=== PATIENT | female | born 1965 | race African-American/Black ===

== ENCOUNTER 2021-08-28 10:33 | Observation (INO) ==
[2021-08-28 10:46] VITALS: BMI 27.4
[2021-08-28] MEDS ORDERED: NS 1,000 ML IV 1,000 ML IV ONE (11:12)
--- NOTE | 2021-08-28 11:12 | DR.EXTPAIN ---
HPI Time seen Time Seen by Provider: 08/28/21 11:03 PCP Primary Care Physician: JORGE Complaint/Symptoms Chief Complaint Doctor Comments: 55 y/o female presents with a painful rash. Was recently diagnosed with covid, developed a rash soon after receiving Ab infusion. Rash worse of hands, feet. Has been itchy, now becoming more painful. Rash has worsened. + swelling, peeling of feet. +worse with palpitation, ambulation. Pt unable to bear weight easily. Nothing makes it better. Denies fever, chills, cough, dyspnea. Pt is a diabetic. Chief Complaint:: PT C/O ITCHING AND BLISTERS ALL OVER HER BODY. PATIENT STATES SHE IS JUST GETTING OVER COVID. SHE HAS WENT AND SEEN HER PCP, BUT PATIENT STATES HER FEET ARE HURTING SO BAD. COVID-19 Coronavirus risk:travel/contact w/high risk person: No Has patient experienced Coronavirus symptoms: No Nurses notes reviewed Nurses Notes Review: Yes Source History Provided: Patient Mode of arrival Mode of Arrival: Ambulatory Timing Onset of Chief Complaint: 08/20/21 PMH PMH Past Medical History: Yes Past Medical History: Diabetes and Hypertension Past Surgical History: Yes Surgical History: Hysterectomy Family History History of Family Medical Conditions: Yes Family Medical History: Diabetes Mellitus and Hypertension Social History Does patient currently use any type of tobacco product: Yes Have you used tobacco products in the last 12 months: Yes Type of Tobacco Use: Cigarettes Does any household member use tobacco: Yes Alcohol Use: None Do you use any recreational Drugs:: No Lives With: Alone Lives Where: Home Travel Risk Coronavirus risk:travel/contact w/high risk person: No Has patient experienced Coronavirus symptoms: No Infectious screening In the last 2 months have you had wt loss of >10#?: NO Have you had fever, night sweats or hemotysis?: No Have you traveled outside the country in the last 6 months?: No Isolation: Standard ROS Review of Systems Constitutional: No Symptoms Reported Eyes: No Symptoms Reported ENTM: No Symptoms Reported Respiratoy: No Symptoms Reported Cardiovascular: No Symptoms Reported Gastrointestinal/Abdominal: No Symptoms Reported Genitourinary: No Symptoms Reported Neurological: No Symptoms Reported Musculoskeletal: Foot Integumentary: Rash Hematologic/Lymphatic: No Symptoms Reported Psychiatric: No Symptoms Reported All Other Systems: Reviewed and Negative PE Vital Signs Vitals: Temperature 97.7 F Pulse Rate 96 Respiratory Rate 20 Blood Pressure [Left Arm] 116/60 Blood Pressure 156/80 O2 Sat by Pulse Oximetry 99 General Limitations: No Limitations General Appearance: Alert and In No Apparent Distress Head Head Exam: Normal Inspection Eyes Eye exam: Normal Appearance and PERRL ENT ENT Exam: Normal Exam Neck Neck Exam: Normal Inspection Chest Chest Inspection: Normal Inspection Respiratory Respiratory Exam: Normal Lung Sounds Bilat; negative Accessory Muscle Use and Respiratory Distress Respiratory Exam: Bilateral: Clear to Auscultation Cardiovascular Cardiovascular Exam: Regular Rate, Normal Rhythm and Normal Heart Sounds Extremities Extremities Exam: Other (+ bilateral swelling of feet, with tenderness. + fluctuance of bilateral heels, + dorsal erythema, R > L. + rash/peeling of hands. ) Neurological Neurological Exam: Alert, Oriented X3 and CN II-XII Intact; negative Motor Sensory Deficit Psychiatric Psychiatric Exam: Normal Affect Skin Skin Exam: Warm and Dry MDM Differential Diagnosis Differential Diagnosis: Other (cellulitis, allergic reaction, Covid rash) COURSE Treatment Treatment: 55 y/o female, recently had covid, developed an itchy rash of mostly her hands and feet. + worsening pain. + concerning for developing cellulitis of feet. Is a diabetic. W/u initiated. LAbs overall acceptable. Will treat with IV zosyn and solu-medrol. Will admit for further evaluation, treatment. Discussed with Dr Alarcon, accepts the admission. ROR Labs Reviewed Laboratory Results Reviewed?: Yes Result Diagrams: 08/28/21 11:31 08/28/21 11:31 Laboratory: WBC 8.1 X10^3/uL (3.6-10.0) 08/28/21 11:31 RBC 5.30 X10^6/uL (3.5-5.4) 08/28/21 11:31 Hgb 14.5 g/dL (12.0-16.0) 08/28/21 11:31 Hct 43.7 % (36.0-47.0) 08/28/21 11:31 MCV 82.5 fL (80.0-100.0) 08/28/21 11:31 MCH 27.5 pg (27.0-34.0) 08/28/21 11:31 MCHC 33.3 g/dL (33.0-35.0) 08/28/21 11:31 RDW 15.0 % (11.6-16.5) 08/28/21 11:31 Plt Count 372 X10^3/uL (150.0-450.0) 08/28/21 11:31 MPV 7.6 fL (7.4-11.0) 08/28/21 11:31 Neut % (Auto) 52.9 % (42.0-75.0) 08/28/21 11:31 Lymph % (Auto) 31.6 % (21.0-51.0) 08/28/21 11:31 [place] % (Auto) 5.6 % (0.0-13.0) 08/28/21 11:31 Eos % (Auto) 9.1 % (0.9-2.9) H 08/28/21 11:31 Baso % (Auto) 0.8 % (0.2-1.0) 08/28/21 11:31 Neut # (Auto) 4.3 x10^3/uL (2.2-4.8) 08/28/21 11:31 Lymph # (Auto) 2.5 X10^3/uL (1.3-2.9) 08/28/21 11:31 [place] # (Auto) 0.4 x10^3/uL (0.3-0.8) 08/28/21 11:31 Eos # (Auto) 0.7 x10^3/uL (0.0-0.2) H 08/28/21 11:31 Baso # (Auto) 0.1 X10^3/uL (0.0-0.1) 08/28/21 11:31 Absolute Nucleated RBC 0.0 /100WBC 08/28/21 11:31 Sodium 143 mmol/L (136-145) 08/28/21 11:31 Corrected Sodium TNP 08/28/21 11:31 Potassium 3.8 mmol/L (3.5-5.1) 08/28/21 11:31 Chloride 106 mmol/L (98-107) 08/28/21 11:31 Carbon Dioxide 25.9 mmol/L (21-32) 08/28/21 11:31 BUN 10 mg/dL (7-18) 08/28/21 11:31 Creatinine 0.54 mg/dL (0.55-1.02) L 08/28/21 11:31 Est GFR (MDRD) Af Amer > 60 (>60) 08/28/21 11:31 Est GFR (MDRD) Non-Af > 60 (>60) 08/28/21 11:31 Glucose 85 mg/dL (65-99) 08/28/21 11:31 Lactic Acid 1.1 mmol/L (0.4-2.0) 08/28/21 11:31 Calcium 8.6 mg/dL (8.5-10.1) 08/28/21 11:31 Corrected Calcium TNP 08/28/21 11:31 Total Bilirubin 0.30 mg/dL (0.2-1.0) 08/28/21 11:31 AST 22 Units/L (15-37) 08/28/21 11:31 ALT 29 Units/L (12-78) 08/28/21 11:31 Alkaline Phosphatase 113 Units/L (46-116) 08/28/21 11:31 C-Reactive Protein 0.80 mg/L (0-3.0) 08/28/21 11:31 Total Protein 7.7 g/dL (6.4-8.2) 08/28/21 11:31 Albumin 3.7 g/dL (3.4-5.0) 08/28/21 11:31 Globulin 4.0 g/dL (2.5-4.5) 08/28/21 11:31 Albumin/Globulin Ratio 0.9 Ratio (1.1-2.1) L 08/28/21 11:31 SARS CoV-2 RNA Rapid ROSIE Negative (NEGATIVE) 08/28/21 14:44 Other Results Comments: Labs acceptable. XRAY XRAY Interpreted by: Both X-ray Results: Xrays of feet without acute abnormalities. Opioid Opioid Risk Tool Age (Donald box if 16-45): No History of Preadolescent Sexual Abuse: No Total: 0 Total Score Risk Category: Low Risk Copyright: Jake ANDERSON predicting aberrant behaviors Diagnosis Discharge Problem: Cellulitis of both feet
[2021-08-28] MEDS ORDERED: NS 1,000 ML IV 1,000 ML ONE ×2 (11:18→16:33)
[2021-08-28] MEDS ORDERED: ZOFRAN INJ 4 MG VIAL IVP ONE (11:19)
[2021-08-28] MEDS ORDERED: DEMEROL INJ IVP ONE (11:19)
[2021-08-28] MEDS ORDERED: ZOFRAN INJ 4 MG VIAL ONE (11:27)
[2021-08-28] MEDS ORDERED: DEMEROL INJ ONE (11:27)
[2021-08-28 12:03] LABS: BASOPHILS # (AUTO) 0.1 X10^3/uL (0.0-0.1); BASOPHILS % (AUTO) 0.8 % (0.2-1.0); EOSINOPHILS # (AUTO) 0.7 x10^3/uL (0.0-0.2); EOSINOPHILS % (AUTO) 9.1 % (0.9-2.9); HEMATOCRIT 43.7 % (36.0-47.0); HEMOGLOBIN 14.5 g/dL (12.0-16.0); LYMPHOCYTES # (AUTO) 2.5 X10^3/uL (1.3-2.9); LYMPHOCYTES % (AUTO) 31.6 % (21.0-51.0); MEAN CORPUSCULAR HEMOGLOBIN 27.5 pg (27.0-34.0); MEAN CORPUSCULAR HGB CONC 33.3 g/dL (33.0-35.0); MEAN CORPUSCULAR VOLUME 82.5 fL (80.0-100.0); MEAN PLATELET VOLUME 7.6 fL (7.4-11.0); MONOCYTES # (AUTO) 0.4 x10^3/uL (0.3-0.8); MONOCYTES % (AUTO) 5.6 % (0.0-13.0); NEUTROPHILS # (AUTO) 4.3 x10^3/uL (2.2-4.8); NEUTROPHILS % (AUTO) 52.9 % (42.0-75.0); WHITE BLOOD COUNT 8.1 X10^3/uL (3.6-10.0)
[2021-08-28 12:12] LABS: ALANINE AMINOTRANSFERASE 29 Units/L (12-78); ALBUMIN 3.7 g/dL (3.4-5.0); ALKALINE PHOSPHATASE 113 Units/L (46-116); ASPARTATE AMINO TRANSFERASE 22 Units/L (15-37); BLOOD UREA NITROGEN 10 mg/dL (7-18); CALCIUM 8.6 mg/dL (8.5-10.1); CARBON DIOXIDE 25.9 mmol/L (21-32); CHLORIDE 106 mmol/L (98-107); CREATININE 0.54 mg/dL (0.55-1.02); SODIUM 143 mmol/L (136-145); TOTAL PROTEIN 7.7 g/dL (6.4-8.2); eGFR NON BLACK RACES > 60 (>60)
[2021-08-28 12:15] LABS: LACTIC ACID 1.1 mmol/L (0.4-2.0)
--- NOTE | 2021-08-28 14:03 | RAD ---
HISTORYptcovid positive, rash to feet and handsSTUDYFOOT, LEFT three-viewCOMPARISONRight foot same dayFINDINGSNo acute cortical disruption or dislocation can be identified. No significant soft tissue swelling or injury can be seen. Calcaneal enthesophytes.IMPRESSIONNo acute fracture or dislocation.Electronically signed by: JESE SANCHEZ (Aug 28, 2021 14:01:35)
--- NOTE | 2021-08-28 14:07 | RAD ---
HISTORYpt covid positive, rash to hands and feetSTUDYFOOT, RIGHT four viewsCOMPARISONNoneFINDINGSAlignment is maintained. No significant soft tissue swelling is present. No fracture or dislocation. Very mild degenerative changes in the midfoot. No abnormal calcification. Enthesophytes on the calcaneus. No foreign body. No emphysema in the soft tissues.IMPRESSION1. No acute finding2. Mild degenerative changesElectronically signed by: Dustin Mosley (Aug 28, 2021 14:06:14)
[2021-08-28] MEDS ORDERED: NS 100 ML IV 0 ML ONE (16:34)
[2021-08-28] MEDS ORDERED: ZOSYN VIAL 3.375 GRAMS IV ONE (16:34)
[2021-08-28] MEDS: NS 1,000 ML IV 1,000 ML IV SCH (16:36)
[2021-08-28] MEDS: ZOSYN VIAL 3.375 GRAMS 3.375 G in NS 100 ML IV 100 ML IV SCH ×2 (16:36→21:52)
[2021-08-28] MEDS: SOLU-Medrol 40 MG VIAL IVP SCH (21:52)
[2021-08-28] MEDS: ULTRAM PO PRN (23:20)
[2021-08-29] MEDS: SOLU-Medrol 40 MG VIAL IVP SCH ×3 (05:57→21:30)
[2021-08-29] MEDS: ZOSYN VIAL 3.375 GRAMS 3.375 G in NS 100 ML IV 100 ML IV SCH ×3 (05:57→21:31)
[2021-08-29] MEDS: ULTRAM PO PRN (06:10)
[2021-08-29 06:37] LABS: BASOPHILS # (AUTO) 0.1 X10^3/uL (0.0-0.1); EOSINOPHILS % (AUTO) 0.1 % (0.9-2.9); HEMATOCRIT 42.1 % (36.0-47.0); LYMPHOCYTES # (AUTO) 1.7 X10^3/uL (1.3-2.9); LYMPHOCYTES % (AUTO) 27.1 % (21.0-51.0); MEAN CORPUSCULAR HEMOGLOBIN 27.3 pg (27.0-34.0); MEAN CORPUSCULAR HGB CONC 33.2 g/dL (33.0-35.0); MEAN PLATELET VOLUME 7.5 fL (7.4-11.0); MONOCYTES # (AUTO) 0.1 x10^3/uL (0.3-0.8); MONOCYTES % (AUTO) 1.5 % (0.0-13.0); NEUTROPHILS # (AUTO) 4.3 x10^3/uL (2.2-4.8); NEUTROPHILS % (AUTO) 70.3 % (42.0-75.0); RED BLOOD COUNT 5.13 X10^6/uL (3.5-5.4); WHITE BLOOD COUNT 6.1 X10^3/uL (3.6-10.0)
[2021-08-29 07:00] LABS: ALANINE AMINOTRANSFERASE 29 Units/L (12-78); ALBUMIN 3.2 g/dL (3.4-5.0); ALKALINE PHOSPHATASE 102 Units/L (46-116); ASPARTATE AMINO TRANSFERASE 18 Units/L (15-37); BLOOD UREA NITROGEN 9 mg/dL (7-18); CARBON DIOXIDE 23.6 mmol/L (21-32); CHLORIDE 106 mmol/L (98-107); COR CA(FOR HYPOALB) 8.6 mg/dL (8.5-10.1); COR NA(FOR HYPERGLY) 143 mmol/L (136-145); SODIUM 142 mmol/L (136-145); TOTAL PROTEIN 6.9 g/dL (6.4-8.2); eGFR NON BLACK RACES > 60 (>60)
[2021-08-29] MEDS: NS 1,000 ML IV 1,000 ML IV SCH (07:43)
--- NOTE | 2021-08-29 10:54 | DR.H&P ---
H&P History & Physical for Day of: H&P Date: 08/29/21 Chief Complaint Chief Complaint: Bilateral foot pain Rash Allergies Allergies Allergy/AdvReac Type Severity Reaction Status Date / Time codeine AdvReac Verified 07/27/21 09:33 History of Present Illness History of Present Illness: Pt is a 55 year old female past medical history of Hypertension, DMT2, presenting with worsening pain in feet and a spreading skin rash that is found throughout the body. She reports that symptoms initially started a few weeks prior, 5 days after she received antibody infusion when she was found to be COVID-19 positive. Labs/imagin.1, Hgb 14, Plt 392, Na 142, K 3.9, Creatinine 0.60, Glucose 155, XR bilateral feet no acute abnormality noted, Blood culture pending. Pt on exam has edema and some erythema in her feet. She also has dermatitis appearing rash that is noted in all extremities and abdomen. She will be admitted for cellulitis. Started on antibiotics: IV Zosyn Q8h, and for skin hypersensitivity reaction will start on IV Solumedrol 40mg Q8h. Will order ESR and CRP. Pharmacy to determine any drug interactions that may be cause of rash. Can use calamine lotion for skin irritation. Continue to closely monitor and follow up labs/imaging. Past Medical History Past Medical History: Diabetes and Hypertension Past Surgical History Surgical History: Hysterectomy Family History Family Medical History: Diabetes Mellitus and Hypertension Social History Does patient currently use any type of tobacco product: Yes Have you used tobacco products in the last 12 months: Yes Type of Tobacco Use: Cigarettes Does any household member use tobacco: Yes Alcohol Use: None Drug Use: None Medications Home Medications: codeine Adverse Reaction (Verified 07/27/21 09:33) CONTINUE taking the following medications aspirin 81 mg PO DAILY 08/28/21 [History] atorvastatin 20 mg PO DAILY 08/28/21 [History] empagliflozin [Jardiance] 25 mg PO DAILY 08/28/21 [History] gabapentin 600 mg PO HS 08/28/21 [History] hydroxyzine HCl 10 - 50 mg PO Q6H PRN 08/28/21 [History] lisinopril 20 mg PO DAILY 08/28/21 [History] metformin 1,000 mg PO DAILY 08/28/21 [History] mometasone 1 applic TOPICAL BID 08/28/21 [History] Labs Result Diagrams: 08/29/21 06:13 08/29/21 06:13 Labs: Laboratory WBC 6.1 X10^3/uL (3.6-10.0) 08/29/21 06:13 RBC 5.13 X10^6/uL (3.5-5.4) 08/29/21 06:13 Hgb 14.0 g/dL (12.0-16.0) 08/29/21 06:13 Hct 42.1 % (36.0-47.0) 08/29/21 06:13 MCV 82.0 fL (80.0-100.0) 08/29/21 06:13 MCH 27.3 pg (27.0-34.0) 08/29/21 06:13 MCHC 33.2 g/dL (33.0-35.0) 08/29/21 06:13 RDW 15.0 % (11.6-16.5) 08/29/21 06:13 Plt Count 392 X10^3/uL (150.0-450.0) 08/29/21 06:13 MPV 7.5 fL (7.4-11.0) 08/29/21 06:13 Neut % (Auto) 70.3 % (42.0-75.0) 08/29/21 06:13 Lymph % (Auto) 27.1 % (21.0-51.0) 08/29/21 06:13 Price % (Auto) 1.5 % (0.0-13.0) 08/29/21 06:13 Eos % (Auto) 0.1 % (0.9-2.9) L 08/29/21 06:13 Baso % (Auto) 1.0 % (0.2-1.0) 08/29/21 06:13 Neut # (Auto) 4.3 x10^3/uL (2.2-4.8) 08/29/21 06:13 Lymph # (Auto) 1.7 X10^3/uL (1.3-2.9) 08/29/21 06:13 Price # (Auto) 0.1 x10^3/uL (0.3-0.8) L 08/29/21 06:13 Eos # (Auto) 0.0 x10^3/uL (0.0-0.2) 08/29/21 06:13 Baso # (Auto) 0.1 X10^3/uL (0.0-0.1) 08/29/21 06:13 Absolute Nucleated RBC 0.0 /100WBC 08/29/21 06:13 Sodium 142 mmol/L (136-145) 08/29/21 06:13 Corrected Sodium 143 mmol/L (136-145) 08/29/21 06:13 Potassium 3.9 mmol/L (3.5-5.1) 08/29/21 06:13 Chloride 106 mmol/L (98-107) 08/29/21 06:13 Carbon Dioxide 23.6 mmol/L (21-32) 08/29/21 06:13 BUN 9 mg/dL (7-18) 08/29/21 06:13 Creatinine 0.60 mg/dL (0.55-1.02) 08/29/21 06:13 Est GFR (MDRD) Af Amer > 60 (>60) 08/29/21 06:13 Est GFR (MDRD) Non-Af > 60 (>60) 08/29/21 06:13 Glucose 155 mg/dL (65-99) H 08/29/21 06:13 POC Glucose (mg/dL) 175 mg/dL (65-99) H 08/29/21 05:46 Lactic Acid 1.1 mmol/L (0.4-2.0) 08/28/21 11:31 Calcium 8.0 mg/dL (8.5-10.1) L 08/29/21 06:13 Corrected Calcium 8.6 mg/dL (8.5-10.1) 08/29/21 06:13 Total Bilirubin 0.30 mg/dL (0.2-1.0) 08/29/21 06:13 AST 18 Units/L (15-37) 08/29/21 06:13 ALT 29 Units/L (12-78) 08/29/21 06:13 Alkaline Phosphatase 102 Units/L (46-116) 08/29/21 06:13 C-Reactive Protein 0.80 mg/L (0-3.0) 08/28/21 11:31 Total Protein 6.9 g/dL (6.4-8.2) 08/29/21 06:13 Albumin 3.2 g/dL (3.4-5.0) L 08/29/21 06:13 Globulin 3.7 g/dL (2.5-4.5) 08/29/21 06:13 Albumin/Globulin Ratio 0.9 Ratio (1.1-2.1) L 08/29/21 06:13 SARS CoV-2 RNA Rapid ROSIE Negative (NEGATIVE) 08/28/21 14:44 Review of Systems Constitutional: No Symptoms Reported Eyes: No Symptoms Reported ENT: No Symptoms Reported Respiratory: No Symptoms Reported Cardiovascular: No Symptoms Reported Gastrointestinal: No Symptoms Reported Genitourinary: No Symptoms Reported Musculoskeletal: Foot Pain (B/L) Skin: Rash Neurological: No Symptoms Reported Physical Exam Vital Signs: Temperature 98.3 F Pulse Rate [Right Brachial] 81 Pulse Rate 96 Respiratory Rate 20 Blood Pressure [Left Arm] 134/72 Blood Pressure 156/80 O2 Sat by Pulse Oximetry 100 Oriented: Normal Eyes: Normal Ear: Normal Nose: Normal Throat: Normal Respiratory: Clear Throughout Cardiovascular: Normal : Normal Auscultation: Bowel Sounds: Normal Palpation: Normal Tenderness: Normal Skin: Rash (diffuse on body, no involvement of mucous membranes ) Musculoskeletal: Foot (erythema, edema b/l) Psychiatric: Normal Mood Description: Calm and Appropriate Affect: Normal Speech Pattern: Clear and Appropriate Assessment/Plan (1) Cellulitis of both feet: Status: Acute Plan: IV Zosyn (2) Dermal hypersensitivity reaction: Status: Acute Review H&P Reviewed: Yes Patient was examined?: Yes
[2021-08-29] MEDS: DEMEROL INJ IVP PRN ×2 (11:25→21:16)
[2021-08-29] MEDS ORDERED: ATARAX TAB 25 MG PO PRN (12:12)
[2021-08-29] MEDS: NYSTATIN POWDER TOP SCH ×2 (15:00→21:10)
[2021-08-29] MEDS: PATIENT'S HOME MEDICATION EXT SCH ×2 (17:24→21:30)
[2021-08-29] MEDS: CALADRYL TOP SCH ×2 (17:25→21:10)
[2021-08-29] MEDS: LEVEMIR SC SCH (20:30)
[2021-08-29] MEDS: SNACK - Diabetic Appropriate PO SCH (21:10)
[2021-08-29] MEDS: NovoLIN R (or HumuLIN R) SUBCUT PRN (21:15)
[2021-08-30] MEDS: NS 1,000 ML IV 1,000 ML IV SCH ×3 (01:15→21:38)
[2021-08-30] MEDS: ZOSYN VIAL 3.375 GRAMS 3.375 G in NS 100 ML IV 100 ML IV SCH ×3 (05:34→22:11)
[2021-08-30] MEDS: SOLU-Medrol 40 MG VIAL IVP SCH (05:34)
[2021-08-30] MEDS: NovoLIN R (or HumuLIN R) SUBCUT PRN (05:57)
[2021-08-30] MEDS: PATIENT'S HOME MEDICATION EXT SCH ×3 (06:46→21:39)
[2021-08-30 06:51] LABS: BASOPHILS % (AUTO) 0.1 % (0.2-1.0); HEMATOCRIT 42.1 % (36.0-47.0); HEMOGLOBIN 13.7 g/dL (12.0-16.0); LYMPHOCYTES # (AUTO) 2.7 X10^3/uL (1.3-2.9); LYMPHOCYTES % (AUTO) 16.9 % (21.0-51.0); MEAN CORPUSCULAR HEMOGLOBIN 26.7 pg (27.0-34.0); MEAN CORPUSCULAR HGB CONC 32.4 g/dL (33.0-35.0); MEAN CORPUSCULAR VOLUME 82.3 fL (80.0-100.0); MEAN PLATELET VOLUME 7.6 fL (7.4-11.0); MONOCYTES # (AUTO) 0.6 x10^3/uL (0.3-0.8); MONOCYTES % (AUTO) 3.9 % (0.0-13.0); NEUTROPHILS # (AUTO) 12.5 x10^3/uL (2.2-4.8); NEUTROPHILS % (AUTO) 79.1 % (42.0-75.0); RED BLOOD COUNT 5.12 X10^6/uL (3.5-5.4); RED CELL DISTRIBUTION WIDTH 14.9 % (11.6-16.5); WHITE BLOOD COUNT 15.8 X10^3/uL (3.6-10.0)
[2021-08-30 07:09] LABS: ERYTHROCYTE SEDIMENTATION RATE 21 MM/HOUR (0-20)
[2021-08-30 07:20] LABS: ALANINE AMINOTRANSFERASE 29 Units/L (12-78); ALBUMIN 3.5 g/dL (3.4-5.0); ALKALINE PHOSPHATASE 95 Units/L (46-116); ASPARTATE AMINO TRANSFERASE 17 Units/L (15-37); BLOOD UREA NITROGEN 12 mg/dL (7-18); CALCIUM 8.3 mg/dL (8.5-10.1); CARBON DIOXIDE 25.5 mmol/L (21-32); CHLORIDE 105 mmol/L (98-107); COR NA(FOR HYPERGLY) 142 mmol/L (136-145); CREATININE 0.62 mg/dL (0.55-1.02); SODIUM 140 mmol/L (136-145); TOTAL PROTEIN 7.3 g/dL (6.4-8.2); eGFR NON BLACK RACES > 60 (>60)
[2021-08-30] MEDS ORDERED: ZESTRIL TAB 20 MG ONE (08:42)
[2021-08-30] MEDS ORDERED: LIPITOR TAB 20 MG PO SCH (09:00)
[2021-08-30] MEDS: CALADRYL TOP SCH ×4 (09:29→21:38)
[2021-08-30] MEDS: NORVASC TAB 10 MG PO SCH (09:29)
[2021-08-30] MEDS: GLUCOPHAGE XR 24-HR PO SCH (09:29)
[2021-08-30] MEDS: ZESTRIL TAB 20 MG PO SCH (09:30)
[2021-08-30] MEDS: NYSTATIN POWDER TOP SCH ×2 (09:42→21:38)
[2021-08-30] MEDS: LAMISIL CREAM TOP SCH (12:00)
[2021-08-30] MEDS: DIFLUCAN 200 MG IV PREMIX* 200 MG/100 ML BAG IV SCH (12:30)
--- NOTE | 2021-08-30 16:23 | PCM.PROG ---
Progress Note Progress Note for Day of Date of Exam: 08/30/21 Subjective Subjective: Pt is a 55 year old female past medical history of Hypertension, DMT2, admitted for bilateral lower extremity cellulitis, dermatitis, and tinea. This morning she reports improvement in her feet swelling and erythema. Rashes on other areas of body have remained the same. Labs/imagin.8, Hgb 13.7, Plt 412, Na 140, K 4.2, Creatinine 0.62, Glucose 192, Blood culture NGTD. Pt on exam has minimal edema and resolving erythema in her feet. She also has dermatitis appearing rash that is noted in all extremities and abdomen. Will continue on antibiotics: IV Zosyn Q8h. ESR and CRP not significant levels, will discontinue IV Solumedrol 40mg Q8h. Start on Lamisil cream and IV Diflucan. Can use calamine lotion for skin irritation. Will need to arrange referral and appointment to Dermatology outpatient. Continue to closely monitor and follow up labs/imaging. Past Medical Family Social History Past Med/Fam/Surg Hx: No changes since H&P Allergies: Allergies codeine Adverse Reaction (Verified 07/27/21 09:33) Review of Systems ROS: No change since H&P Vital Signs and I&O's Vital Signs: Temperature 98.4 F Pulse Rate [Right Brachial] 81 Pulse Rate 96 Respiratory Rate 20 Blood Pressure [Right Arm] 143/80 Blood Pressure [Left Arm] 157/76 Blood Pressure 156/80 O2 Sat by Pulse Oximetry 100 Intake and Output: Intake & Output 08/27/21 08/28/21 08/29/21 08/30/21 23:59 23:59 23:59 23:59 Intake Total 1037 / 1037 1560 / 1560 480 / 480 Balance 1037 / 1037 1560 / 1560 480 / 480 Physical Exam Oriented: Normal Eyes: Normal Ear: Normal Nose: Normal Throat: Normal Respiratory: Normal Cardiovascular: Normal : Normal Auscultation: Bowel Sounds: Normal Tenderness: Normal Skin: Rash (diffuse on body, no involvement of mucous membranes ) Musculoskeletal: Foot (erythema, edema b/l) Psychiatric: Normal Mood Description: Calm and Appropriate Affect: Normal Speech Pattern: Clear and Appropriate Laboratory and Diagnostics Result Diagrams: 08/30/21 06:00 08/30/21 06:00 Labs: 08/28/21 11:34 Blood Blood Culture - Preliminary 08/28/21 11:31 Blood Blood Culture - Preliminary Laboratory WBC 15.8 X10^3/uL (3.6-10.0) H D 08/30/21 06:00 RBC 5.12 X10^6/uL (3.5-5.4) 08/30/21 06:00 Hgb 13.7 g/dL (12.0-16.0) 08/30/21 06:00 Hct 42.1 % (36.0-47.0) 08/30/21 06:00 MCV 82.3 fL (80.0-100.0) 08/30/21 06:00 MCH 26.7 pg (27.0-34.0) L 08/30/21 06:00 MCHC 32.4 g/dL (33.0-35.0) L 08/30/21 06:00 RDW 14.9 % (11.6-16.5) 08/30/21 06:00 Plt Count 412 X10^3/uL (150.0-450.0) 08/30/21 06:00 MPV 7.6 fL (7.4-11.0) 08/30/21 06:00 Neut % (Auto) 79.1 % (42.0-75.0) H 08/30/21 06:00 Lymph % (Auto) 16.9 % (21.0-51.0) L 08/30/21 06:00 [place] % (Auto) 3.9 % (0.0-13.0) 08/30/21 06:00 Eos % (Auto) 0.0 % (0.9-2.9) L 08/30/21 06:00 Baso % (Auto) 0.1 % (0.2-1.0) L 08/30/21 06:00 Neut # (Auto) 12.5 x10^3/uL (2.2-4.8) H 08/30/21 06:00 Lymph # (Auto) 2.7 X10^3/uL (1.3-2.9) 08/30/21 06:00 [place] # (Auto) 0.6 x10^3/uL (0.3-0.8) 08/30/21 06:00 Eos # (Auto) 0.0 x10^3/uL (0.0-0.2) 08/30/21 06:00 Baso # (Auto) 0.0 X10^3/uL (0.0-0.1) 08/30/21 06:00 Absolute Nucleated RBC 0.3 /100WBC 08/30/21 06:00 ESR 21 MM/HOUR (0-20) H 08/30/21 06:00 Sodium 140 mmol/L (136-145) 08/30/21 06:00 Corrected Sodium 142 mmol/L (136-145) 08/30/21 06:00 Potassium 4.2 mmol/L (3.5-5.1) 08/30/21 06:00 Chloride 105 mmol/L (98-107) 08/30/21 06:00 Carbon Dioxide 25.5 mmol/L (21-32) 08/30/21 06:00 BUN 12 mg/dL (7-18) 08/30/21 06:00 Creatinine 0.62 mg/dL (0.55-1.02) 08/30/21 06:00 Est GFR (MDRD) Af Amer > 60 (>60) 08/30/21 06:00 Est GFR (MDRD) Non-Af > 60 (>60) 08/30/21 06:00 Glucose 192 mg/dL (65-99) H 08/30/21 06:00 POC Glucose (mg/dL) 120 mg/dL (65-99) H 08/30/21 12:27 Lactic Acid 1.1 mmol/L (0.4-2.0) 08/28/21 11:31 Calcium 8.3 mg/dL (8.5-10.1) L 08/30/21 06:00 Corrected Calcium TNP 08/30/21 06:00 Total Bilirubin 0.30 mg/dL (0.2-1.0) 08/30/21 06:00 AST 17 Units/L (15-37) 08/30/21 06:00 ALT 29 Units/L (12-78) 08/30/21 06:00 Alkaline Phosphatase 95 Units/L (46-116) 08/30/21 06:00 C-Reactive Protein < 0.50 mg/L (0-3.0) 08/30/21 06:00 Total Protein 7.3 g/dL (6.4-8.2) 08/30/21 06:00 Albumin 3.5 g/dL (3.4-5.0) 08/30/21 06:00 Globulin 3.8 g/dL (2.5-4.5) 08/30/21 06:00 Albumin/Globulin Ratio 0.9 Ratio (1.1-2.1) L 08/30/21 06:00 SARS CoV-2 RNA Rapid ROSIE Negative (NEGATIVE) 08/28/21 14:44 Plan (1) Cellulitis of both feet: Status: Acute Plan: IV Zosyn (2) Dermal hypersensitivity reaction: Status: Acute (3) Tinea pedis: Status: Acute
[2021-08-30] MEDS: SNACK - Diabetic Appropriate PO SCH (21:38)
[2021-08-30] MEDS: LEVEMIR SC SCH (21:39)
[2021-08-30] MEDS: LIPITOR TAB 20 MG PO SCH (21:39)
[2021-08-30] MEDS: DEMEROL INJ IVP PRN (21:58)
[2021-08-31] MEDS: ZOSYN VIAL 3.375 GRAMS 3.375 G in NS 100 ML IV 100 ML IV SCH ×3 (05:45→21:37)
[2021-08-31] MEDS: NS 1,000 ML IV 1,000 ML IV SCH ×3 (05:45→21:36)
[2021-08-31] MEDS: PATIENT'S HOME MEDICATION EXT SCH ×3 (05:46→21:37)
[2021-08-31] MEDS: DEMEROL INJ IVP PRN (05:47)
[2021-08-31 06:16] LABS: BASOPHILS # (AUTO) 0.1 X10^3/uL (0.0-0.1); EOSINOPHILS # (AUTO) 0.1 x10^3/uL (0.0-0.2); EOSINOPHILS % (AUTO) 0.7 % (0.9-2.9); HEMATOCRIT 40.4 % (36.0-47.0); HEMOGLOBIN 13.4 g/dL (12.0-16.0); LYMPHOCYTES # (AUTO) 4.6 X10^3/uL (1.3-2.9); LYMPHOCYTES % (AUTO) 40.1 % (21.0-51.0); MEAN CORPUSCULAR HEMOGLOBIN 27.2 pg (27.0-34.0); MEAN CORPUSCULAR HGB CONC 33.2 g/dL (33.0-35.0); MEAN CORPUSCULAR VOLUME 81.9 fL (80.0-100.0); MEAN PLATELET VOLUME 7.6 fL (7.4-11.0); MONOCYTES # (AUTO) 0.8 x10^3/uL (0.3-0.8); NEUTROPHILS # (AUTO) 5.8 x10^3/uL (2.2-4.8); NEUTROPHILS % (AUTO) 51.2 % (42.0-75.0); RED BLOOD COUNT 4.93 X10^6/uL (3.5-5.4); RED CELL DISTRIBUTION WIDTH 14.9 % (11.6-16.5); WHITE BLOOD COUNT 11.4 X10^3/uL (3.6-10.0)
[2021-08-31] MEDS ORDERED: ZESTRIL TAB 20 MG ONE (08:29)
[2021-08-31] MEDS: ZESTRIL TAB 20 MG PO SCH (09:48)
[2021-08-31] MEDS: CALADRYL TOP SCH ×4 (09:48→21:36)
[2021-08-31] MEDS: NYSTATIN POWDER TOP SCH ×2 (09:48→21:36)
[2021-08-31] MEDS: GLUCOPHAGE XR 24-HR PO SCH (09:48)
[2021-08-31] MEDS: NORVASC TAB 10 MG PO SCH (09:48)
[2021-08-31] MEDS: DIFLUCAN 200 MG IV PREMIX* 200 MG/100 ML BAG IV SCH (09:49)
[2021-08-31] MEDS: LAMISIL CREAM TOP SCH ×2 (11:26→15:00)
--- NOTE | 2021-08-31 14:52 | PCM.PROG ---
Progress Note Progress Note for Day of Date of Exam: 08/31/21 Subjective Subjective: Pt is a 55 year old female past medical history of Hypertension, DMT2, admitted for bilateral lower extremity cellulitis, dermatitis, and tinea. This morning patient has had some improvement in her symptoms. She continues to have dry, flakey, rash on other areas of body. Labs/imagin.4, Hgb 13.4, Plt 387, Na 140, K 4.2, Creatinine 0.62, Glucose 192, Blood culture NGTD. Pt on exam has minimal edema and resolving erythema in her feet. She also has dermatitis appearing rash that is noted in all extremities and abdomen. Will continue on antibiotics: IV Zosyn Q8h, Lamisil cream, and IV Diflucan. Calamine lotion ordered for skin irritation. Dermatology appointment outpatient is being a rranged by case management. Continue to closely monitor and follow up labs. Past Medical Family Social History Past Med/Fam/Surg Hx: No changes since H&P Allergies: Allergies codeine Adverse Reaction (Verified 07/27/21 09:33) Review of Systems ROS: No change since H&P Vital Signs and I&O's Vital Signs: Temperature 98.7 F Pulse Rate [Right Brachial] 65 Pulse Rate 96 Respiratory Rate 16 Blood Pressure [Right Arm] 146/74 Blood Pressure [Left Arm] 157/76 Blood Pressure 156/80 O2 Sat by Pulse Oximetry 100 Intake and Output: Intake & Output 08/28/21 08/29/21 08/30/21 08/31/21 23:59 23:59 23:59 23:59 Intake Total 1037 / 1037 1560 / 1560 3443 / 3443 356 / 356 Balance 1037 / 1037 1560 / 1560 3443 / 3443 356 / 356 Physical Exam Oriented: Normal Eyes: Normal Ear: Normal Nose: Normal Throat: Normal Respiratory: Normal Cardiovascular: Normal : Normal Auscultation: Bowel Sounds: Normal Tenderness: Normal Skin: Rash (diffuse on body, no involvement of mucous membranes ) Musculoskeletal: Foot (erythema, edema b/l) Psychiatric: Normal Mood Description: Calm and Appropriate Affect: Normal Speech Pattern: Clear and Appropriate Laboratory and Diagnostics Result Diagrams: 08/31/21 05:08 08/30/21 06:00 Labs: 08/28/21 11:34 Blood Blood Culture - Preliminary 08/28/21 11:31 Blood Blood Culture - Preliminary Laboratory WBC 11.4 X10^3/uL (3.6-10.0) H 08/31/21 05:08 RBC 4.93 X10^6/uL (3.5-5.4) 08/31/21 05:08 Hgb 13.4 g/dL (12.0-16.0) 08/31/21 05:08 Hct 40.4 % (36.0-47.0) 08/31/21 05:08 MCV 81.9 fL (80.0-100.0) 08/31/21 05:08 MCH 27.2 pg (27.0-34.0) 08/31/21 05:08 MCHC 33.2 g/dL (33.0-35.0) 08/31/21 05:08 RDW 14.9 % (11.6-16.5) 08/31/21 05:08 Plt Count 387 X10^3/uL (150.0-450.0) 08/31/21 05:08 MPV 7.6 fL (7.4-11.0) 08/31/21 05:08 Neut % (Auto) 51.2 % (42.0-75.0) 08/31/21 05:08 Lymph % (Auto) 40.1 % (21.0-51.0) 08/31/21 05:08 [place] % (Auto) 7.0 % (0.0-13.0) 08/31/21 05:08 Eos % (Auto) 0.7 % (0.9-2.9) L 08/31/21 05:08 Baso % (Auto) 1.0 % (0.2-1.0) 08/31/21 05:08 Neut # (Auto) 5.8 x10^3/uL (2.2-4.8) H 08/31/21 05:08 Lymph # (Auto) 4.6 X10^3/uL (1.3-2.9) H 08/31/21 05:08 [place] # (Auto) 0.8 x10^3/uL (0.3-0.8) 08/31/21 05:08 Eos # (Auto) 0.1 x10^3/uL (0.0-0.2) 08/31/21 05:08 Baso # (Auto) 0.1 X10^3/uL (0.0-0.1) 08/31/21 05:08 Absolute Nucleated RBC 0.1 /100WBC 08/31/21 05:08 ESR 21 MM/HOUR (0-20) H 08/30/21 06:00 Sodium 140 mmol/L (136-145) 08/30/21 06:00 Corrected Sodium 142 mmol/L (136-145) 08/30/21 06:00 Potassium 4.2 mmol/L (3.5-5.1) 08/30/21 06:00 Chloride 105 mmol/L (98-107) 08/30/21 06:00 Carbon Dioxide 25.5 mmol/L (21-32) 08/30/21 06:00 BUN 12 mg/dL (7-18) 08/30/21 06:00 Creatinine 0.62 mg/dL (0.55-1.02) 08/30/21 06:00 Est GFR (MDRD) Af Amer > 60 (>60) 08/30/21 06:00 Est GFR (MDRD) Non-Af > 60 (>60) 08/30/21 06:00 Glucose 192 mg/dL (65-99) H 08/30/21 06:00 POC Glucose (mg/dL) 113 mg/dL (65-99) H 08/31/21 11:15 Lactic Acid 1.1 mmol/L (0.4-2.0) 08/28/21 11:31 Calcium 8.3 mg/dL (8.5-10.1) L 08/30/21 06:00 Corrected Calcium TNP 08/30/21 06:00 Total Bilirubin 0.30 mg/dL (0.2-1.0) 08/30/21 06:00 AST 17 Units/L (15-37) 08/30/21 06:00 ALT 29 Units/L (12-78) 08/30/21 06:00 Alkaline Phosphatase 95 Units/L (46-116) 08/30/21 06:00 C-Reactive Protein < 0.50 mg/L (0-3.0) 08/31/21 05:08 Total Protein 7.3 g/dL (6.4-8.2) 08/30/21 06:00 Albumin 3.5 g/dL (3.4-5.0) 08/30/21 06:00 Globulin 3.8 g/dL (2.5-4.5) 08/30/21 06:00 Albumin/Globulin Ratio 0.9 Ratio (1.1-2.1) L 08/30/21 06:00 SARS CoV-2 RNA Rapid ROSIE Negative (NEGATIVE) 08/28/21 14:44 Plan (1) Cellulitis of both feet: Status: Acute Plan: IV Zosyn (2) Dermal hypersensitivity reaction: Status: Acute (3) Tinea pedis: Status: Acute
[2021-08-31] MEDS: SNACK - Diabetic Appropriate PO SCH (20:35)
[2021-08-31] MEDS: LIPITOR TAB 20 MG PO SCH (21:36)
[2021-08-31] MEDS: LEVEMIR SC SCH (21:37)
[2021-09-01] MEDS: DEMEROL INJ IVP PRN (04:25)
[2021-09-01] MEDS: PATIENT'S HOME MEDICATION EXT SCH (05:31)
[2021-09-01] MEDS: ZOSYN VIAL 3.375 GRAMS 3.375 G in NS 100 ML IV 100 ML IV SCH (05:32)
[2021-09-01 06:10] LABS: BASOPHILS # (AUTO) 0.1 X10^3/uL (0.0-0.1); BASOPHILS % (AUTO) 0.7 % (0.2-1.0); EOSINOPHILS # (AUTO) 0.3 x10^3/uL (0.0-0.2); EOSINOPHILS % (AUTO) 3.6 % (0.9-2.9); HEMATOCRIT 40.5 % (36.0-47.0); HEMOGLOBIN 13.5 g/dL (12.0-16.0); LYMPHOCYTES # (AUTO) 2.9 X10^3/uL (1.3-2.9); LYMPHOCYTES % (AUTO) 36.6 % (21.0-51.0); MEAN CORPUSCULAR HEMOGLOBIN 27.3 pg (27.0-34.0); MEAN CORPUSCULAR HGB CONC 33.3 g/dL (33.0-35.0); MEAN CORPUSCULAR VOLUME 82.1 fL (80.0-100.0); MEAN PLATELET VOLUME 7.6 fL (7.4-11.0); MONOCYTES # (AUTO) 0.7 x10^3/uL (0.3-0.8); MONOCYTES % (AUTO) 8.5 % (0.0-13.0); NEUTROPHILS # (AUTO) 4.1 x10^3/uL (2.2-4.8); NEUTROPHILS % (AUTO) 50.6 % (42.0-75.0); RED BLOOD COUNT 4.93 X10^6/uL (3.5-5.4); RED CELL DISTRIBUTION WIDTH 14.8 % (11.6-16.5)
[2021-09-01] MEDS ORDERED: ZESTRIL TAB 20 MG ONE (07:36)
[2021-09-01 08:09] VITALS: BP 129/67
[2021-09-01] MEDS: ZESTRIL TAB 20 MG PO SCH (08:15)
[2021-09-01] MEDS: DIFLUCAN 200 MG IV PREMIX* 200 MG/100 ML BAG IV SCH (08:15)
[2021-09-01] MEDS: CALADRYL TOP SCH ×2 (08:15→13:00)
[2021-09-01] MEDS: NYSTATIN POWDER TOP SCH (08:16)
[2021-09-01] MEDS: NORVASC TAB 10 MG PO SCH (08:16)
[2021-09-01] MEDS: GLUCOPHAGE XR 24-HR PO SCH (08:16)
[2021-09-01 08:27] LABS: ALANINE AMINOTRANSFERASE 30 Units/L (12-78); ALBUMIN 3.2 g/dL (3.4-5.0); ALKALINE PHOSPHATASE 73 Units/L (46-116); ASPARTATE AMINO TRANSFERASE 14 Units/L (15-37); BLOOD UREA NITROGEN 12 mg/dL (7-18); CALCIUM 7.8 mg/dL (8.5-10.1); CARBON DIOXIDE 24.7 mmol/L (21-32); CHLORIDE 105 mmol/L (98-107); COR CA(FOR HYPOALB) 8.4 mg/dL (8.5-10.1); COR NA(FOR HYPERGLY) 141 mmol/L (136-145); CREATININE 0.65 mg/dL (0.55-1.02); SODIUM 140 mmol/L (136-145); TOTAL PROTEIN 6.4 g/dL (6.4-8.2); eGFR NON BLACK RACES > 60 (>60)
[2021-09-01] MEDS: LAMISIL CREAM TOP SCH (10:17)
--- NOTE | 2021-09-01 11:14 | W.DIS.FURT ---
Summary of Discharge Discharge Summary of Date Date of Exam: 09/01/21 Admission Date Date of Admission: 08/28/21 Admission Diagnosis Patient Problems (Updated 08/30/21 @ 16:22 by Tulio Kathleen) Cellulitis of both feet (Acute) L03.115, L03.116 Hospital Course: Pt is a 55 year old female past medical history of Hypertension, DMT2, admitted for bilateral lower extremity cellulitis, dermatitis, and tinea. Her hospital/treatment course included: antibiotics: IV Zosyn Q8h, Lamisil cream, Calamine lotion, and IV Diflucan. She had received a few days of IV solumedrol. Her symptoms improved and cellulitis resolved, however she continues to have dry, flakey, skin and eczema on many different areas of body. Dermatology appointment is set up tomorrow in [place] for patient to follow up with specialist. Pt discharged in stable condition. Instructed to follow up with pcp in 3-5 days. Vital Signs: Vital Signs (72 hours) 08/29/21 11:25 08/29/21 11:55 08/29/21 12:00 Temperature 98.6 F Pulse Rate [Right Brachial] 85 Respiratory Rate 20 20 20 Blood Pressure [Right Arm] 136/76 O2 Sat by Pulse Oximetry 98 08/29/21 16:00 08/29/21 20:00 08/29/21 21:16 Temperature 98.7 F 98.1 F Pulse Rate [Right Brachial] 78 91 H Respiratory Rate 20 18 20 Blood Pressure [Right Arm] 150/70 165/66 O2 Sat by Pulse Oximetry 100 98 08/29/21 21:46 08/30/21 00:00 08/30/21 04:00 Temperature 98.2 F 98.2 F Pulse Rate [Right Brachial] 75 77 Respiratory Rate 18 21 20 Blood Pressure [Right Arm] 136/67 158/80 O2 Sat by Pulse Oximetry 100 100 08/30/21 08:00 08/30/21 12:00 08/30/21 16:00 Temperature 98.1 F 98.4 F 98.1 F Pulse Rate [Right Brachial] 75 81 90 Respiratory Rate 20 20 20 Blood Pressure [Right Arm] 143/81 143/80 164/83 O2 Sat by Pulse Oximetry 98 100 95 08/30/21 20:00 08/30/21 21:58 08/30/21 22:28 Temperature 97.8 F Pulse Rate [Right Brachial] 82 Respiratory Rate 18 20 18 Blood Pressure [Right Arm] 137/69 O2 Sat by Pulse Oximetry 99 08/31/21 00:00 08/31/21 04:00 08/31/21 05:47 Temperature 98.5 F 98.9 F Pulse Rate [Right Brachial] 68 66 Respiratory Rate 18 20 20 Blood Pressure [Right Arm] 122/59 175/77 O2 Sat by Pulse Oximetry 95 96 08/31/21 06:17 08/31/21 08:00 08/31/21 12:00 Temperature 98.2 F 98.7 F Pulse Rate [Right Brachial] 62 65 Respiratory Rate 20 16 16 Blood Pressure [Right Arm] 137/76 146/74 O2 Sat by Pulse Oximetry 100 100 08/31/21 16:00 08/31/21 20:00 09/01/21 00:00 Temperature 98.8 F 98.4 F 98.4 F Pulse Rate [Right Brachial] 70 72 66 Respiratory Rate 16 20 18 Blood Pressure [Right Arm] 123/72 125/70 134/67 O2 Sat by Pulse Oximetry 100 100 100 09/01/21 04:00 09/01/21 04:25 09/01/21 04:55 Temperature 98.0 F Pulse Rate [Right Brachial] 68 Respiratory Rate 22 20 20 Blood Pressure [Right Arm] 123/63 O2 Sat by Pulse Oximetry 97 09/01/21 08:00 Temperature 98.9 F Pulse Rate [Right Brachial] 70 Respiratory Rate 20 Blood Pressure [Right Arm] 129/67 O2 Sat by Pulse Oximetry 98 Labs: Laboratory Last Values WBC 8.0 X10^3/uL (3.6-10.0) 09/01/21 05:14 RBC 4.93 X10^6/uL (3.5-5.4) 09/01/21 05:14 Hgb 13.5 g/dL (12.0-16.0) 09/01/21 05:14 Hct 40.5 % (36.0-47.0) 09/01/21 05:14 MCV 82.1 fL (80.0-100.0) 09/01/21 05:14 MCH 27.3 pg (27.0-34.0) 09/01/21 05:14 MCHC 33.3 g/dL (33.0-35.0) 09/01/21 05:14 RDW 14.8 % (11.6-16.5) 09/01/21 05:14 Plt Count 392 X10^3/uL (150.0-450.0) 09/01/21 05:14 MPV 7.6 fL (7.4-11.0) 09/01/21 05:14 Neut % (Auto) 50.6 % (42.0-75.0) 09/01/21 05:14 Lymph % (Auto) 36.6 % (21.0-51.0) 09/01/21 05:14 [place] % (Auto) 8.5 % (0.0-13.0) 09/01/21 05:14 Eos % (Auto) 3.6 % (0.9-2.9) H 09/01/21 05:14 Baso % (Auto) 0.7 % (0.2-1.0) 09/01/21 05:14 Neut # (Auto) 4.1 x10^3/uL (2.2-4.8) 09/01/21 05:14 Lymph # (Auto) 2.9 X10^3/uL (1.3-2.9) 09/01/21 05:14 [place] # (Auto) 0.7 x10^3/uL (0.3-0.8) 09/01/21 05:14 Eos # (Auto) 0.3 x10^3/uL (0.0-0.2) H 09/01/21 05:14 Baso # (Auto) 0.1 X10^3/uL (0.0-0.1) 09/01/21 05:14 Absolute Nucleated RBC 0.1 /100WBC 09/01/21 05:14 ESR 21 MM/HOUR (0-20) H 08/30/21 06:00 Sodium 140 mmol/L (136-145) 09/01/21 05:14 Corrected Sodium 141 mmol/L (136-145) 09/01/21 05:14 Potassium 3.4 mmol/L (3.5-5.1) L 09/01/21 05:14 Chloride 105 mmol/L (98-107) 09/01/21 05:14 Carbon Dioxide 24.7 mmol/L (21-32) 09/01/21 05:14 BUN 12 mg/dL (7-18) 09/01/21 05:14 Creatinine 0.65 mg/dL (0.55-1.02) 09/01/21 05:14 Est GFR (MDRD) Af Amer > 60 (>60) 09/01/21 05:14 Est GFR (MDRD) Non-Af > 60 (>60) 09/01/21 05:14 Glucose 141 mg/dL (65-99) H 09/01/21 05:14 POC Glucose (mg/dL) 146 mg/dL (65-99) H 09/01/21 05:12 Lactic Acid 1.1 mmol/L (0.4-2.0) 08/28/21 11:31 Calcium 7.8 mg/dL (8.5-10.1) L 09/01/21 05:14 Corrected Calcium 8.4 mg/dL (8.5-10.1) L 09/01/21 05:14 Total Bilirubin 0.40 mg/dL (0.2-1.0) 09/01/21 05:14 AST 14 Units/L (15-37) L 09/01/21 05:14 ALT 30 Units/L (12-78) 09/01/21 05:14 Alkaline Phosphatase 73 Units/L (46-116) 09/01/21 05:14 C-Reactive Protein < 0.50 mg/L (0-3.0) 09/01/21 05:14 Total Protein 6.4 g/dL (6.4-8.2) 09/01/21 05:14 Albumin 3.2 g/dL (3.4-5.0) L 09/01/21 05:14 Globulin 3.2 g/dL (2.5-4.5) 09/01/21 05:14 Albumin/Globulin Ratio 1.0 Ratio (1.1-2.1) L 09/01/21 05:14 SARS CoV-2 RNA Rapid ROSIE Negative (NEGATIVE) 08/28/21 14:44 Reason For Visit: CELLULITIS OF FEET Discharge Date Discharge Date: 09/01/21 Discharge Diagnosis All Active Problems (Updated 08/30/21 @ 16:22 by Tulio Kathleen) Tinea pedis (Acute) Dermal hypersensitivity reaction (Acute) Essential hypertension (Chronic) History of angina (Chronic) Gout (Chronic) Hyperosmolar non-ketotic state in patient with type 2 diabetes mellitus (Acute) Hyperglycemia without ketosis (Acute) Metabolic acidosis (Acute) Gastroenteritis (Acute) Hematuria (Acute) Cystitis (Acute) Hypertension (Acute) Acute hyperglycemia (Acute) Cellulitis of both feet (Acute) Plan of Treatment: Continue with present treatment and follow up plan. Pt is to keep follow up appointment as instructed and take medications as ordered. Discharge Medications Discharge Medications: codeine Adverse Reaction (Verified 07/27/21 09:33) CONTINUE taking the following medications Jardiance 25 mg PO DAILY 08/28/21 [History] aspirin 81 mg PO DAILY 08/28/21 [History] atorvastatin 20 mg PO DAILY 08/28/21 [History] gabapentin 600 mg PO HS 08/28/21 [History] hydroxyzine HCl 10 - 50 mg PO Q6H PRN 08/28/21 [History] lisinopril 20 mg PO DAILY 08/28/21 [History] metformin 1,000 mg PO DAILY 08/28/21 [History] mometasone 1 applic TOPICAL BID 08/28/21 [History] Follow up and Referral Follow Up: 1 Week Discharge Disposition Discharge Disposition: Home Discharge Condition: Stable Discharge Plan Discharge Plan Hospital Course: Pt is a 55 year old female past medical history of Hypertension, DMT2, admitted for bilateral lower extremity cellulitis, dermatitis, and tinea. Her hospital/treatment course included: antibiotics: IV Zosyn Q8h, Lamisil cream, Calamine lotion, and IV Diflucan. She had received a few days of IV solumedrol. Her symptoms improved and cellulitis resolved, however she continues to have dry, flakey, skin and eczema on many different areas of body. Dermatology appointment is set up tomorrow in [place] for patient to follow up with specialist. Pt discharged in stable condition. Instructed to follow up with pcp in 3-5 days. Patient Disposition: HOME, SELF-CARE Condition: Stable Health Concerns: Post Hospitalization: new medications and changes needed to prevent readmission or further decline. Pt educated and given instructions on all concerns. Care Plan Goals: Problem: Pain/Alteration in Comfort Goal: Improve/ Resolve Pain; Achieve Pain Tolerance Instructions: Take pain medications as prescribed. Contact your primary care provider if your pain is unrelieved or worsens. Follow up with primary care provider as directed. Plan of Treatment: Continue with present treatment and follow up plan. Pt is to keep follow up appointment as instructed and take medications as ordered. Prescriptions: Continued amlodipine 10 MG tablet 10 mg PO DAILY Qty: 100 RF: 0 gabapentin 600 mg tablet 600 mg PO HS RF: 0 atorvastatin 20 mg tablet 20 mg PO DAILY RF: 0 lisinopril 20 mg tablet 20 mg PO DAILY RF: 0 aspirin 81 mg Tablet 81 mg PO DAILY RF: 0 hydroxyzine HCl 10 mg tablet 10 - 50 mg PO Q6H PRN (Reason: Itching) RF: 0 mometasone 0.1 % cream 1 applic TOPICAL BID RF: 0 Jardiance 25 mg tablet 25 mg PO DAILY RF: 0 metformin 500 MG tablet extended release 24 hr 1,000 mg PO DAILY RF: 0 Levemir FlexTouch U-100 Insuln 100 unit/mL (3 mL) Insulin Pen 10 unit SUBCUT QHS RF: 0 Orders to Discharge Patient Discharge Orders: Discharge (Routine); Ordered 09/01/21 Ordered By: Tulio Kathleen Follow ups/Referrals Follow ups/Referrals: [facility] [Other] - 09/02/21 9:00 am Tulio Kathleen [STAFF PHYSICIAN] - 09/15/21 9:00 am Instructions Instructions: Tips for Eating Away From Home If You Have Diabetes, Steps to Quit Smoking, [id number], Athlete's Foot, [id number], How to Take Your Blood Pressure, [id number], Athlete's Foot, Contact Dermatitis, Allergies, Adult Stand Alone Forms: Excuse From Work or School, Precautions for COVID19, [facility], Patient Portal, Social Distancing
== END 2021-09-01 13:20 | disposition home or self-care (01) ==
LOC: ER 10:42 → MED/SURG 10:42
PROVIDERS: ADMIT Internal Medicine; ATTEND Family Medicine

== ENCOUNTER 2022-07-28 21:04 | Observation (INO) ==
--- NOTE | 2022-07-28 22:37 | ED.ABDFE ---
HPI Time Seen Time Seen by Provider: 07/28/22 22:37 PCP Primary Care Physician: ERIC PATEL Complaint Doctors Chief Complaint Comments: 56 y/o female presents for evaluation. + upper abdominal pain, epigastric region, sharp, off/on. Radiates to the back. A ssociated with nausea. No vomiting, diarrhea. No change in the color of stools, not stooling as much. Pt not sure if food makes it worse. No h/o PUD, GB problems. Denies frequent OTC meds. Nothing makes it better, nothing makes it worse. 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 Reviewed Nurses Notes Review: Yes Source History Provided: Patient Mode of arrival Mode of Arrival: Ambulatory Timing Onset of Chief Complaint: 07/25/22 PMH PMH Past Medical History: Yes Past Medical History: Diabetes and Hypertension Past Surgical History: Yes Surgical History: Hysterectomy Family History History of Family Medical Conditions: Yes Family Medical History: Diabetes Mellitus and Hypertension Social History Does patient currently use any type of tobacco product: Yes Have you used tobacco products in the last 12 months: Yes Type of Tobacco Use: Cigarettes Does any household member use tobacco: No Alcohol Use: Occasionally Do you use any recreational Drugs:: No Lives With: Family Lives Where: Home Infectious screening In the last 2 months have you had wt loss of >10#?: NO Have you had fever, night sweats or hemotysis?: No Have you traveled outside the country in the last 6 months?: No Isolation: Standard ROS Review of Systems Constitutional: No Symptoms Reported Eyes: No Symptoms Reported ENTM: No Symptoms Reported Respiratoy: No Symptoms Reported Cardiovascular: No Symptoms Reported Gastrointestinal/Abdominal: See HPI Genitourinary: No Symptoms Reported Neurological: No Symptoms Reported Musculoskeletal: No Symptoms Reported Integumentary: No Symptoms Reported Hematologic/Lymphatic: No Symptoms Reported All Other Systems: Reviewed and Negative PE Vital Signs Vitals: Temperature 98.2 F Pulse Rate [Right] 72 Pulse Rate 78 Respiratory Rate 18 Blood Pressure [Right Arm] 129/67 Blood Pressure [Left Arm] 183/91 Blood Pressure [Right Arm] 142/88 Blood Pressure 190/90 O2 Sat by Pulse Oximetry 100 General General Appearance: Alert and Other (appears uncomfortable. ) Eyes Eye exam: PERRL and EOMI ENT ENT Exam: Mucous Membranes Moist Neck Neck Exam: Normal Inspection and Full ROM Respiratory Respiratory Exam: Normal Lung Sounds Bilat; negative Accessory Muscle Use or Respiratory Distress Cardiovascular Cardiovascular Exam: Regular Rate, Normal Rhythm and Normal Heart Sounds Abdominal Exam Abdominal Exam: Normal Bowel Sounds, Soft and Tenderness (epigastric, RUQ.) Extremeties Extremities Exam: Normal Inspection and Full ROM; negative Edema Neurologic Neurological Exam: Alert, Oriented X3 and CN II-XII Intact; negative Motor Sensory Deficit Skin Skin Exam: Warm and Dry COURSE Treatment Treatment: Pt with upper abdominal pain and nausea x several days. Pt given IV fluids, IV zofran/morphine. Labs acceptable. Will pursue a CT of theabd/pelvis with IV contrast. 1243 - CT shows GB to have been surgically removed (pt initially could not recall that). 0113 - CT read as having mild pancreatitis, involving the pancreatitc head. Lipase mildly elevated at 497. Pt not feeling any better. Additional morphine/zofran given IV. Will recommend admission for further treatment. ROR Labs Reviewed Laboratory Results Reviewed?: Yes Result Diagrams: 07/28/22 22:35 07/28/22 22:35 Laboratory: WBC 7.2 X10^3/uL (3.6-10.0) 07/28/22 22:35 RBC 5.47 X10^6/uL (3.5-5.4) H 07/28/22 22:35 Hgb 14.8 g/dL (12.0-16.0) 07/28/22 22:35 Hct 44.7 % (36.0-47.0) 07/28/22 22:35 MCV 81.7 fL (80.0-100.0) 07/28/22 22:35 MCH 27.0 pg (27.0-34.0) 07/28/22 22:35 MCHC 33.0 g/dL (33.0-35.0) 07/28/22 22:35 RDW 15.3 % (11.6-16.5) 07/28/22 22:35 Plt Count 256 X10^3/uL (150.0-450.0) 07/28/22 22:35 MPV 7.3 fL (7.4-11.0) L 07/28/22 22:35 Neut % (Auto) 55.7 % (42.0-75.0) 07/28/22 22:35 Lymph % (Auto) 25.2 % (21.0-51.0) 07/28/22 22:35 [place] % (Auto) 10.6 % (0.0-13.0) 07/28/22 22:35 Eos % (Auto) 7.9 % (0.9-2.9) H 07/28/22 22:35 Baso % (Auto) 0.6 % (0.2-1.0) 07/28/22 22:35 Neut # (Auto) 4.0 x10^3/uL (2.2-4.8) 07/28/22 22:35 Lymph # (Auto) 1.8 X10^3/uL (1.3-2.9) 07/28/22 22:35 [place] # (Auto) 0.8 x10^3/uL (0.3-0.8) 07/28/22 22:35 Eos # (Auto) 0.6 x10^3/uL (0.0-0.2) H 07/28/22 22:35 Baso # (Auto) 0.0 X10^3/uL (0.0-0.1) 07/28/22 22:35 Absolute Nucleated RBC 0.0 /100WBC 07/28/22 22:35 Sodium 139 mmol/L (136-145) 07/28/22 22:35 Corrected Sodium 140 mmol/L (136-145) 07/28/22 22:35 Potassium 4.3 mmol/L (3.5-5.1) 07/28/22 22:35 Chloride 100 mmol/L (98-107) 07/28/22 22:35 Carbon Dioxide 32.6 mmol/L (21-32) H 07/28/22 22:35 BUN 10 mg/dL (7-18) 07/28/22 22:35 Creatinine 0.74 mg/dL (0.55-1.02) 07/28/22 22:35 Est GFR (MDRD) Af Amer > 60 (>60) 07/28/22 22:35 Est GFR (MDRD) Non-Af > 60 (>60) 07/28/22 22:35 Glucose 160 mg/dL (65-99) H 07/28/22 22:35 Calcium 8.7 mg/dL (8.5-10.1) 07/28/22 22:35 Corrected Calcium TNP 07/28/22 22:35 Total Bilirubin 0.30 mg/dL (0.2-1.0) 07/28/22 22:35 AST 12 Units/L (15-37) L 07/28/22 22:35 ALT 16 Units/L (12-78) 07/28/22 22:35 Alkaline Phosphatase 100 Units/L (46-116) 07/28/22 22:35 Total Protein 7.6 g/dL (6.4-8.2) 07/28/22 22:35 Albumin 3.8 g/dL (3.4-5.0) 07/28/22 22:35 Globulin 3.8 g/dL (2.5-4.5) 07/28/22 22:35 Albumin/Globulin Ratio 1.0 Ratio (1.1-2.1) L 07/28/22 22:35 Amylase 119 Units/L (25-115) H 07/28/22 22:35 Lipase 497 Units/L (73-393) H 07/28/22 22:35 Specimen Type Clean catch urine 07/28/22 22:30 Urine Color Yellow (YELLOW) 07/28/22 22:30 Urine Appearance Clear (CLEAR) 07/28/22 22: Urine pH 6.5 (5.0 - 8.0) 07/28/22 22:30 Ur Specific [place] 1.015 (1.000-1.030) 07/28/22 22:30 Urine Protein Negative (NEGATIVE) 07/28/22 22: Urine Glucose (UA) Negative (NEGATIVE) 07/28/22 22:30 Urine Ketones Negative (NEGATIVE) 07/28/22 22: Urine Blood 3+ (NEGATIVE) 07/28/22 22: Urine Nitrite Negative (NEGATIVE) 07/28/22 22: Urine Bilirubin Negative (NEGATIVE) 07/28/22 22: Urine Urobilinogen Normal (NORMAL) 07/28/22 22:30 Ur Leukocyte Esterase 2+ (NEGATIVE) 07/28/22 22:30 Urine RBC 3-5 /HPF (0-3) A 07/28/22 22: Urine WBC 0-2 /HPF (0-5) 07/28/22 22:30 Ur Squamous Epith Cells Few /HPF (NEGATIVE) 07/28/22 22:30 Urine Bacteria Trace /HPF (NEGATIVE) 07/28/22 22:30 Hyaline Casts Rare /LPF (NEGATIVE) 07/28/22 22:30 Coarse Granular Casts Rare /HPF (NEGATIVE) 07/28/22 22:30 Urine Mucus Rare /HPF (NEGATIVE) 07/28/22 22:30 Ur Culture Indicated? No/not indicated 07/28/22 22:30 + mild elevation of lipase XRAY XRAY Interpreted by: Radiologist X-ray Results: CT abd/pelvis with mild inflammation of the pancreas head. Opioid Opioid Risk Tool Age (Donald box if 16-45): No History of Preadolescent Sexual Abuse: No Total: 0 Total Score Risk Category: Low Risk Copyright: Jake ANDERSON predicting aberrant behaviors Discharge Plan Diagnosis Discharge Problem: Acute pancreatitis Discharge Plan Patient Disposition: 09 ADMITTED INPATIENT Condition: Stable Orders to Discharge Patient Discharge Orders: Transfer (Routine); Ordered 07/29/22 Ordered By: Simone Inman
[2022-07-28 22:48] LABS: BILIRUBIN,URINE NEGATIVE (NEGATIVE); BLOOD/HEMOGLOBIN,URINE 3+ (NEGATIVE); GLUCOSE, URINE NEGATIVE (NEGATIVE); KETONES,URINE NEGATIVE (NEGATIVE); LEUKOCYTE ESTERASE ,URINE 2+ (NEGATIVE); NITRITES,URINE NEGATIVE (NEGATIVE); PH,URINE 6.5 (5.0 - 8.0); PROTEIN,URINE NEGATIVE (NEGATIVE); UROBILINOGEN,URINE NORMAL (NORMAL)
[2022-07-28 22:49] LABS: BASOPHILS % (AUTO) 0.6 % (0.2-1.0); EOSINOPHILS # (AUTO) 0.6 x10^3/uL (0.0-0.2); EOSINOPHILS % (AUTO) 7.9 % (0.9-2.9); HEMATOCRIT 44.7 % (36.0-47.0); HEMOGLOBIN 14.8 g/dL (12.0-16.0); LYMPHOCYTES # (AUTO) 1.8 X10^3/uL (1.3-2.9); LYMPHOCYTES % (AUTO) 25.2 % (21.0-51.0); MEAN CORPUSCULAR VOLUME 81.7 fL (80.0-100.0); MEAN PLATELET VOLUME 7.3 fL (7.4-11.0); MONOCYTES # (AUTO) 0.8 x10^3/uL (0.3-0.8); MONOCYTES % (AUTO) 10.6 % (0.0-13.0); NEUTROPHILS % (AUTO) 55.7 % (42.0-75.0); RED BLOOD COUNT 5.47 X10^6/uL (3.5-5.4); RED CELL DISTRIBUTION WIDTH 15.3 % (11.6-16.5); WHITE BLOOD COUNT 7.2 X10^3/uL (3.6-10.0)
[2022-07-28 22:50] LABS: APPEARANCE,URINE CLEAR (CLEAR); COLOR,URINE YELLOW (YELLOW)
[2022-07-28 22:55] LABS: BACTERIA,URINE TRACE /HPF (NEGATIVE); COARSE GRANULAR CASTS,URINE RARE /HPF (NEGATIVE); HYALINE CASTS, URINE RARE /LPF (NEGATIVE); SQUAMOUS EPITHELIAL CELL,UR FEW /HPF (NEGATIVE)
[2022-07-28] MEDS ORDERED: NS 1,000 ML IV 1,000 ML IV ONE (22:57)
[2022-07-28] MEDS ORDERED: PROTONIX INJ 40 MG VIAL IVP ONE (22:57)
[2022-07-28] MEDS ORDERED: MORPHINE SULFATE INJ 4 MG IVP ONE (22:57)
[2022-07-28] MEDS ORDERED: ZOFRAN INJ 4 MG VIAL IVP ONE (22:57)
[2022-07-28 22:58] LABS: ALANINE AMINOTRANSFERASE 16 Units/L (12-78); ALBUMIN 3.8 g/dL (3.4-5.0); ALKALINE PHOSPHATASE 100 Units/L (46-116); AMYLASE 119 Units/L (25-115); ASPARTATE AMINO TRANSFERASE 12 Units/L (15-37); BLOOD UREA NITROGEN 10 mg/dL (7-18); CALCIUM 8.7 mg/dL (8.5-10.1); CARBON DIOXIDE 32.6 mmol/L (21-32); CHLORIDE 100 mmol/L (98-107); COR NA(FOR HYPERGLY) 140 mmol/L (136-145); CREATININE 0.74 mg/dL (0.55-1.02); LIPASE 497 Units/L (73-393); SODIUM 139 mmol/L (136-145); TOTAL PROTEIN 7.6 g/dL (6.4-8.2); eGFR NON BLACK RACES > 60 (>60)
[2022-07-28] MEDS ORDERED: PROTONIX INJ 40 MG VIAL ONE (23:03)
[2022-07-28] MEDS ORDERED: MORPHINE SULFATE INJ 4 MG ONE (23:03)
[2022-07-28] MEDS ORDERED: ZOFRAN INJ 4 MG VIAL ONE (23:03)
[2022-07-28] MEDS ORDERED: NS 1,000 ML IV 1,000 ML ONE (23:04)
[2022-07-29] MEDS ORDERED: PROTONIX INJ 40 MG VIAL IVP ONE (00:57)
[2022-07-29] MEDS ORDERED: CARAFATE PO ONE (00:57)
[2022-07-29] MEDS ORDERED: ZOFRAN INJ 4 MG VIAL IVP ONE (00:57)
[2022-07-29] MEDS ORDERED: MORPHINE SULFATE INJ 4 MG IVP ONE (00:57)
--- NOTE | 2022-07-29 01:08 | CT ---
HISTORYPT C/O EPIGASTRIC PAIN X 3 DAYS BEEN TAKING ACID REDUCERS WITH NO RELIEFSTUDYABDOMEN/PELVIS WITH CONCOMPARISONNone.TECHNIQUESerial axial images were obtained from the lung bases to the pubic symphysis with the administration of intravenous contrast. Soft tissue, lung windows and bone window images were interpreted. Dose reduction techniques were utilized.FINDINGSThe heart is not enlarged. There are calcified subcarinal and left infrahilar lymph nodes seen. The lung bases are clear.The liver is normal in size and reveals no focal lesions. There is no intrahepatic biliary ductal dilatation or obvious common bile duct dilatation. There are cholecystectomy clips identified.. The spleen is unremarkable, revealing no focal lesions. There are mild peripancreatic inflammatory changes seen of the pancreatic head which also appears mildly swollen. The adrenal glands are unremarkableThe aorta and inferior vena cava are unremarkable. No significant para-aortic or retroperitoneal lymphadenopathy is identified.The kidneys are unremarkable. There are no radiopaque renal, ureteric or urinary bladder calculi. There is no hydronephrosis. There is no obstructive uropathy.Examination of the bowel, greater omentum and mesentery reveals diverticular disease of the distal descending colon and sigmoid colon without evidence for acute diverticulitis. The appendix is unremarkable with no evidence for acute appendicitis. Examination of the pelvis reveals no pathologic masses or fluid collections. The uterus is not visualized and probably has been resected. The urinary bladder is unremarkable. There are pelvic phleboliths. There is a small umbilical hernia with only herniation of omental fat through the defect.There is vacuum phenomenon within the sacroiliac joints. There are bulky bridging anterior osteophytes of the lower thoracic spine seen from T7 through T10.IMPRESSIONMild acute pancreatitis, predominately involving the pancreatic head.Electronically signed by: Mckenna Newton (Jul 29, 2022 01:06:31)
[2022-07-29] MEDS ORDERED: MORPHINE SULFATE INJ 4 MG ONE (01:10)
[2022-07-29] MEDS ORDERED: ZOFRAN INJ 4 MG VIAL ONE (01:10)
[2022-07-29] MEDS ORDERED: ZOFRAN INJ 4 MG VIAL IVP PRN (02:20)
[2022-07-29] MEDS: D5 1/2 NS 1,000 ML 1,000 ML IV SCH ×3 (04:27→18:06)
[2022-07-29] MEDS: MORPHINE SULFATE INJ 4 MG IVP PRN ×3 (05:56→19:48)
[2022-07-29 06:09] LABS: BASOPHILS # (AUTO) 0.1 X10^3/uL (0.0-0.1); BASOPHILS % (AUTO) 0.8 % (0.2-1.0); EOSINOPHILS # (AUTO) 0.5 x10^3/uL (0.0-0.2); EOSINOPHILS % (AUTO) 8.5 % (0.9-2.9); HEMATOCRIT 42.3 % (36.0-47.0); HEMOGLOBIN 13.9 g/dL (12.0-16.0); LYMPHOCYTES # (AUTO) 1.7 X10^3/uL (1.3-2.9); LYMPHOCYTES % (AUTO) 27.5 % (21.0-51.0); MEAN CORPUSCULAR HEMOGLOBIN 26.7 pg (27.0-34.0); MEAN CORPUSCULAR HGB CONC 32.9 g/dL (33.0-35.0); MEAN PLATELET VOLUME 7.6 fL (7.4-11.0); MONOCYTES # (AUTO) 0.8 x10^3/uL (0.3-0.8); MONOCYTES % (AUTO) 12.8 % (0.0-13.0); NEUTROPHILS # (AUTO) 3.1 x10^3/uL (2.2-4.8); NEUTROPHILS % (AUTO) 50.4 % (42.0-75.0); RED BLOOD COUNT 5.22 X10^6/uL (3.5-5.4); RED CELL DISTRIBUTION WIDTH 14.9 % (11.6-16.5); WHITE BLOOD COUNT 6.1 X10^3/uL (3.6-10.0)
[2022-07-29 06:27] LABS: ALANINE AMINOTRANSFERASE 14 Units/L (12-78); ALBUMIN 3.2 g/dL (3.4-5.0); ALKALINE PHOSPHATASE 89 Units/L (46-116); AMYLASE 88 Units/L (25-115); ASPARTATE AMINO TRANSFERASE 8 Units/L (15-37); BLOOD UREA NITROGEN 7 mg/dL (7-18); CALCIUM 7.9 mg/dL (8.5-10.1); CARBON DIOXIDE 29.6 mmol/L (21-32); CHLORIDE 103 mmol/L (98-107); COR CA(FOR HYPOALB) 8.5 mg/dL (8.5-10.1); COR NA(FOR HYPERGLY) 141 mmol/L (136-145); CREATININE 0.67 mg/dL (0.55-1.02); LIPASE 313 Units/L (73-393); SODIUM 139 mmol/L (136-145); TOTAL PROTEIN 6.4 g/dL (6.4-8.2); eGFR NON BLACK RACES > 60 (>60)
[2022-07-29] MEDS ORDERED: ZESTRIL TAB 20 MG ONE (08:05)
[2022-07-29] MEDS: ZESTRIL TAB 20 MG PO SCH (08:42)
[2022-07-29] MEDS: NORVASC TAB 10 MG PO SCH (08:42)
[2022-07-29] MEDS ORDERED: GLUCOPHAGE XR 24-HR PO SCH (09:00)
[2022-07-29] MEDS: PATIENT'S HOME MEDICATION PO SCH (11:10)
[2022-07-29] MEDS: NovoLIN R (or HumuLIN R) SUBCUT PRN (11:29)
[2022-07-29] MEDS ORDERED: POTASSIUM CHL 40 MEQ/NS 0.45% 500 ML IV PRN (12:19)
[2022-07-29] MEDS ORDERED: POTASSIUM CHLORIDE LIQ 20 MEQ UDC PO PRN (12:19)
[2022-07-29] MEDS ORDERED: K-RIDER 10 MEQ/NS 100 ML 10 MEQ/100 ML BAG IV PRN (12:19)
[2022-07-29] MEDS ORDERED: MAGNESIUM SULFATE 1 GRAM/100 mL PREMIX 1 G/100 ML BAG IV PRN (12:19)
[2022-07-29] MEDS ORDERED: MICRO K EXTEN CAP 10 MEQ PO PRN (12:19)
[2022-07-29] MEDS ORDERED: K-DUR TAB 20 MEQ PO PRN (12:19)
[2022-07-29] MEDS ORDERED: KLOR-CON PO PRN (12:19)
[2022-07-29] MEDS ORDERED: POTASSIUM CHL 60 MEQ/NS 0.45% 500 ML IV PRN (12:19)
[2022-07-29] MEDS: MILK OF MAGNESIA PO PRN ×2 (13:46→20:37)
[2022-07-29] MEDS: NEURONTIN TAB 600 MG PO SCH (20:38)
[2022-07-29] MEDS: COLACE CAP 100 MG PO SCH (20:38)
[2022-07-29] MEDS: SNACK - Diabetic Appropriate PO SCH (20:40)
[2022-07-29 22:02] VITALS: BMI 27.9
[2022-07-30] MEDS: D5 1/2 NS 1,000 ML 1,000 ML IV SCH ×3 (02:10→17:48)
[2022-07-30] MEDS: MORPHINE SULFATE INJ 4 MG IVP PRN (04:36)
[2022-07-30 06:16] LABS: BASOPHILS # (AUTO) 0.1 X10^3/uL (0.0-0.1); BASOPHILS % (AUTO) 1.2 % (0.2-1.0); EOSINOPHILS # (AUTO) 0.4 x10^3/uL (0.0-0.2); EOSINOPHILS % (AUTO) 8.7 % (0.9-2.9); HEMATOCRIT 42.9 % (36.0-47.0); HEMOGLOBIN 14.1 g/dL (12.0-16.0); LYMPHOCYTES # (AUTO) 2.1 X10^3/uL (1.3-2.9); LYMPHOCYTES % (AUTO) 47.5 % (21.0-51.0); MEAN CORPUSCULAR HEMOGLOBIN 26.9 pg (27.0-34.0); MEAN CORPUSCULAR HGB CONC 32.9 g/dL (33.0-35.0); MEAN CORPUSCULAR VOLUME 81.6 fL (80.0-100.0); MEAN PLATELET VOLUME 7.7 fL (7.4-11.0); MONOCYTES # (AUTO) 0.6 x10^3/uL (0.3-0.8); MONOCYTES % (AUTO) 12.4 % (0.0-13.0); NEUTROPHILS # (AUTO) 1.3 x10^3/uL (2.2-4.8); NEUTROPHILS % (AUTO) 30.2 % (42.0-75.0); RED BLOOD COUNT 5.26 X10^6/uL (3.5-5.4); RED CELL DISTRIBUTION WIDTH 14.7 % (11.6-16.5); WHITE BLOOD COUNT 4.4 X10^3/uL (3.6-10.0)
[2022-07-30 06:40] LABS: ALANINE AMINOTRANSFERASE 17 Units/L (12-78); ALBUMIN 3.2 g/dL (3.4-5.0); ALKALINE PHOSPHATASE 93 Units/L (46-116); AMYLASE 96 Units/L (25-115); ASPARTATE AMINO TRANSFERASE 11 Units/L (15-37); BLOOD UREA NITROGEN 5 mg/dL (7-18); CALCIUM 8.1 mg/dL (8.5-10.1); CARBON DIOXIDE 30.6 mmol/L (21-32); CHLORIDE 103 mmol/L (98-107); COR CA(FOR HYPOALB) 8.7 mg/dL (8.5-10.1); COR NA(FOR HYPERGLY) 139 mmol/L (136-145); CREATININE 0.65 mg/dL (0.55-1.02); LIPASE 268 Units/L (73-393); SODIUM 137 mmol/L (136-145); TOTAL PROTEIN 6.8 g/dL (6.4-8.2); eGFR NON BLACK RACES > 60 (>60)
[2022-07-30] MEDS ORDERED: ZESTRIL TAB 20 MG ONE (07:52)
[2022-07-30] MEDS: NORVASC TAB 10 MG PO SCH (08:14)
[2022-07-30] MEDS: ZESTRIL TAB 20 MG PO SCH (08:14)
[2022-07-30] MEDS: PATIENT'S HOME MEDICATION PO SCH (08:22)
--- NOTE | 2022-07-30 08:42 | DR.H&P ---
H&P History & Physical for Day of: H&P Date: 07/29/22 Chief Complaint Chief Complaint: Abdominal pain Nausea Allergies Allergies Allergy/AdvReac Type Severity Reaction Status Date / Time codeine AdvReac Verified 07/27/21 09:33 History of Present Illness History of Present Illness: Pt is a 56 year old female presenting with epigastric pain that she states is intermittent, sharp, with some radiation to the back. She reports symptoms of nausea. Denies vomiting, diarrhea, change in bowel movement or stools. Unsure if related to foot intake. Denies fevers, chills, dysuria. Labs/imaging: Wbc 6.1, Hgb 13.9, Plt 242, Na 139, K 3.7, Creatinine 0.67, Glucose 177, Lipase 497, CTAP was obtained that revealed: Mild acute pancreatitis, predominately involving the pancreatic head. Pt was admitted for acute pancreatitis. Start on IVF D5 1/2 NS@125ml/h, IV morphine prn for pain control, IV zofran prn for nausea. On examination pt does have some epigastric tenderness. She is feeling slightly better. Will start on clear liquid diet. Continue to closely monitor and follow up labs in the morning. Past Medical History Past Medical History: Diabetes and Hypertension Past Surgical History Surgical History: Cholecystectomy and Hysterectomy Family History Family Medical History: Diabetes Mellitus and Hypertension Social History Does patient currently use any type of tobacco product: Yes Have you used tobacco products in the last 12 months: Yes Type of Tobacco Use: Cigarettes Does any household member use tobacco: No Alcohol Use: Occasionally Drug Use: None Medications Home Medications: codeine Adverse Reaction (Verified 07/27/21 09:33) CONTINUE taking the following medications atorvastatin 20 mg tablet 1 tab PO QDAY 07/29/22 [History] empagliflozin 25 mg-metformin ER 1,000 mg tablet,extended release 24hr (Synjardy XR) 1 tab PO DAILY 07/29/22 [History] lisinopril 20 mg tablet 1 tab PO QDAY 07/29/22 [History] metformin 500 mg tablet,extended release 24 hr 1 tab PO BID 07/29/22 [History] mupirocin 2 % topical ointment 1 applic topical BID-TID 07/29/22 [History] tramadol 50 mg tablet 1 tab PO TID PRN 07/29/22 [History] Labs Result Diagrams: 07/30/22 05:30 07/30/22 05:30 Labs: Laboratory WBC 4.4 X10^3/uL (3.6-10.0) 07/30/22 05:30 RBC 5.26 X10^6/uL (3.5-5.4) 07/30/22 05:30 Hgb 14.1 g/dL (12.0-16.0) 07/30/22 05:30 Hct 42.9 % (36.0-47.0) 07/30/22 05:30 MCV 81.6 fL (80.0-100.0) 07/30/22 05:30 MCH 26.9 pg (27.0-34.0) L 07/30/22 05:30 MCHC 32.9 g/dL (33.0-35.0) L 07/30/22 05:30 RDW 14.7 % (11.6-16.5) 07/30/22 05:30 Plt Count 244 X10^3/uL (150.0-450.0) 07/30/22 05:30 MPV 7.7 fL (7.4-11.0) 07/30/22 05:30 Neut % (Auto) 30.2 % (42.0-75.0) L 07/30/22 05:30 Lymph % (Auto) 47.5 % (21.0-51.0) 07/30/22 05:30 [place] % (Auto) 12.4 % (0.0-13.0) 07/30/22 05:30 Eos % (Auto) 8.7 % (0.9-2.9) H 07/30/22 05:30 Baso % (Auto) 1.2 % (0.2-1.0) H 07/30/22 05:30 Neut # (Auto) 1.3 x10^3/uL (2.2-4.8) L 07/30/22 05:30 Lymph # (Auto) 2.1 X10^3/uL (1.3-2.9) 07/30/22 05:30 [place] # (Auto) 0.6 x10^3/uL (0.3-0.8) 07/30/22 05:30 Eos # (Auto) 0.4 x10^3/uL (0.0-0.2) H 07/30/22 05:30 Baso # (Auto) 0.1 X10^3/uL (0.0-0.1) 07/30/22 05:30 Absolute Nucleated RBC 0.1 /100WBC 07/30/22 05:30 Sodium 137 mmol/L (136-145) 07/30/22 05:30 Corrected Sodium 139 mmol/L (136-145) 07/30/22 05:30 Potassium 3.9 mmol/L (3.5-5.1) 07/30/22 05:30 Chloride 103 mmol/L (98-107) 07/30/22 05:30 Carbon Dioxide 30.6 mmol/L (21-32) 07/30/22 05:30 BUN 5 mg/dL (7-18) L 07/30/22 05:30 Creatinine 0.65 mg/dL (0.55-1.02) 07/30/22 05:30 Est GFR (MDRD) Af Amer > 60 (>60) 07/30/22 05:30 Est GFR (MDRD) Non-Af > 60 (>60) 07/30/22 05:30 Glucose 186 mg/dL (65-99) H 07/30/22 05:30 POC Glucose (mg/dL) 182 mg/dL (65-99) H 07/30/22 05:41 Calcium 8.1 mg/dL (8.5-10.1) L 07/30/22 05:30 Corrected Calcium 8.7 mg/dL (8.5-10.1) 07/30/22 05:30 Total Bilirubin 0.30 mg/dL (0.2-1.0) 07/30/22 05:30 AST 11 Units/L (15-37) L 07/30/22 05:30 ALT 17 Units/L (12-78) 07/30/22 05:30 Alkaline Phosphatase 93 Units/L (46-116) 07/30/22 05:30 Total Protein 6.8 g/dL (6.4-8.2) 07/30/22 05:30 Albumin 3.2 g/dL (3.4-5.0) L 07/30/22 05:30 Globulin 3.6 g/dL (2.5-4.5) 07/30/22 05:30 Albumin/Globulin Ratio 0.9 Ratio (1.1-2.1) L 07/30/22 05:30 Amylase 96 Units/L (25-115) 07/30/22 05:30 Lipase 268 Units/L (73-393) 07/30/22 05:30 Specimen Type Clean catch urine 07/28/22 22:30 Urine Color Yellow (YELLOW) 07/28/22 22:30 Urine Appearance Clear (CLEAR) 07/28/22 22:30 Urine pH 6.5 (5.0 - 8.0) 07/28/22 22:30 Ur Specific [place] 1.015 (1.000-1.030) 07/28/22 22:30 Urine Protein Negative (NEGATIVE) 07/28/22 22:30 Urine Glucose (UA) Negative (NEGATIVE) 07/28/22 22:30 Urine Ketones Negative (NEGATIVE) 07/28/22 22:30 Urine Blood 3+ (NEGATIVE) 07/28/22 22:30 Urine Nitrite Negative (NEGATIVE) 07/28/22 22:30 Urine Bilirubin Negative (NEGATIVE) 07/28/22 22:30 Urine Urobilinogen Normal (NORMAL) 07/28/22 22:30 Ur Leukocyte Esterase 2+ (NEGATIVE) 07/28/22 22:30 Urine RBC 3-5 /HPF (0-3) A 07/28/22 22:30 Urine WBC 0-2 /HPF (0-5) 07/28/22 22:30 Ur Squamous Epith Cells Few /HPF (NEGATIVE) 07/28/22 22:30 Urine Bacteria Trace /HPF (NEGATIVE) 07/28/22 22:30 Hyaline Casts Rare /LPF (NEGATIVE) 07/28/22 22:30 Coarse Granular Casts Rare /HPF (NEGATIVE) 07/28/22 22:30 Urine Mucus Rare /HPF (NEGATIVE) 07/28/22 22:30 Ur Culture Indicated? No/not indicated 07/28/22 22:30 Review of Systems Constitutional: No Symptoms Reported Eyes: No Symptoms Reported ENT: No Symptoms Reported Respiratory: No Symptoms Reported Cardiovascular: No Symptoms Reported Gastrointestinal: Nausea and Abdominal Pain Genitourinary: No Symptoms Reported Musculoskeletal: No Symptoms Reported Skin: No Symptoms Reported Neurological: No Symptoms Reported Physical Exam Vital Signs: Temperature 98.1 F Pulse Rate [Right] 64 Pulse Rate 78 Respiratory Rate 18 Blood Pressure [Right Arm] 167/81 Blood Pressure [Left Arm] 176/91 Blood Pressure [Right Arm] 142/88 Blood Pressure 190/90 O2 Sat by Pulse Oximetry 100 Oriented: Normal Eyes: Normal Ear: Normal Nose: Normal Throat: Normal Respiratory: Clear Throughout Cardiovascular: Normal : Normal Auscultation: Bowel Sounds: Normal Palpation: Normal Tenderness: Epigastric, Mild and Moderate Skin: Normal Musculoskeletal: Normal Psychiatric: Normal Mood Description: Calm and Appropriate Affect: Normal Speech Pattern: Clear and Appropriate Assessment/Plan (1) Acute pancreatitis: Status: Acute Plan: IVF, IV morphine prn, IV zofran prn Start on clear liquid diet Review H&P Reviewed: Yes Patient was examined?: Yes
--- NOTE | 2022-07-30 10:43 | PCM.PROG ---
Progress Note Progress Note for Day of Date of Exam: 07/30/22 Subjective Subjective: Pt is a 56 year old female admitted for acute pancreatitis. This morning she reports feeling a little better. She was able to tolerate full liquid diet yesterday. No acute events overnight. Labs/imaging: Wbc 4.4, Hgb 14.1, Plt 244, Na 137, K 3.9, Creatinine 0.65, Glucose 186, Lipase 268, CTAP was obtained that revealed: Mild acute pancreatitis, predominately involving the pancreatic head. Pt was admitted for acute pancreatitis. Pt is currently receiving IVF D5 1/2 NS@125ml/h, IV morphine prn for pain control, IV zofran prn for nausea. Will discontinue morphine and add po oxycodone for pain. Continue to advance diet. Closely monitor and follow up labs in the morning. Past Medical Family Social History Allergies: Allergies codeine Adverse Reaction (Verified 07/27/21 09:33) Review of Systems ROS: No change since H&P ROS changes noted: see HPI Vital Signs and I&O's Vital Signs: Temperature 98.6 F Pulse Rate [Right] 65 Pulse Rate 78 Respiratory Rate 18 Blood Pressure [Right Arm] 136/80 Blood Pressure [Left Arm] 176/91 Blood Pressure [Right Arm] 142/88 Blood Pressure 190/90 O2 Sat by Pulse Oximetry 100 Intake and Output: Intake & Output 07/27/22 07/28/22 07/29/22 07/30/22 23:59 23:59 23:59 23:59 Intake Total 3185 / 3185 1830 / 1830 Output Total 40 / 40 Balance 3185 / 3185 1790 / 1790 Physical Exam Oriented: Normal Eyes: Normal Ear: Normal Nose: Normal Throat: Normal Respiratory: Normal Cardiovascular: Normal : Normal Auscultation: Bowel Sounds: Normal Tenderness: Epigastric and Mild Skin: Normal Musculoskeletal: Normal Psychiatric: Normal Mood Description: Calm and Appropriate Affect: Normal Speech Pattern: Clear and Appropriate Laboratory and Diagnostics Result Diagrams: 07/30/22 05:30 07/30/22 05:30 Labs: Laboratory WBC 4.4 X10^3/uL (3.6-10.0) 07/30/22 05:30 RBC 5.26 X10^6/uL (3.5-5.4) 07/30/22 05:30 Hgb 14.1 g/dL (12.0-16.0) 07/30/22 05:30 Hct 42.9 % (36.0-47.0) 07/30/22 05:30 MCV 81.6 fL (80.0-100.0) 07/30/22 05:30 MCH 26.9 pg (27.0-34.0) L 07/30/22 05:30 MCHC 32.9 g/dL (33.0-35.0) L 07/30/22 05:30 RDW 14.7 % (11.6-16.5) 07/30/22 05:30 Plt Count 244 X10^3/uL (150.0-450.0) 07/30/22 05:30 MPV 7.7 fL (7.4-11.0) 07/30/22 05:30 Neut % (Auto) 30.2 % (42.0-75.0) L 07/30/22 05:30 Lymph % (Auto) 47.5 % (21.0-51.0) 07/30/22 05:30 [place] % (Auto) 12.4 % (0.0-13.0) 07/30/22 05:30 Eos % (Auto) 8.7 % (0.9-2.9) H 07/30/22 05:30 Baso % (Auto) 1.2 % (0.2-1.0) H 07/30/22 05:30 Neut # (Auto) 1.3 x10^3/uL (2.2-4.8) L 07/30/22 05:30 Lymph # (Auto) 2.1 X10^3/uL (1.3-2.9) 07/30/22 05:30 [place] # (Auto) 0.6 x10^3/uL (0.3-0.8) 07/30/22 05:30 Eos # (Auto) 0.4 x10^3/uL (0.0-0.2) H 07/30/22 05:30 Baso # (Auto) 0.1 X10^3/uL (0.0-0.1) 07/30/22 05:30 Absolute Nucleated RBC 0.1 /100WBC 07/30/22 05:30 Sodium 137 mmol/L (136-145) 07/30/22 05:30 Corrected Sodium 139 mmol/L (136-145) 07/30/22 05:30 Potassium 3.9 mmol/L (3.5-5.1) 07/30/22 05:30 Chloride 103 mmol/L (98-107) 07/30/22 05:30 Carbon Dioxide 30.6 mmol/L (21-32) 07/30/22 05:30 BUN 5 mg/dL (7-18) L 07/30/22 05:30 Creatinine 0.65 mg/dL (0.55-1.02) 07/30/22 05:30 Est GFR (MDRD) Af Amer > 60 (>60) 07/30/22 05:30 Est GFR (MDRD) Non-Af > 60 (>60) 07/30/22 05:30 Glucose 186 mg/dL (65-99) H 07/30/22 05:30 POC Glucose (mg/dL) 182 mg/dL (65-99) H 07/30/22 05:41 Calcium 8.1 mg/dL (8.5-10.1) L 07/30/22 05:30 Corrected Calcium 8.7 mg/dL (8.5-10.1) 07/30/22 05:30 Total Bilirubin 0.30 mg/dL (0.2-1.0) 07/30/22 05:30 AST 11 Units/L (15-37) L 07/30/22 05:30 ALT 17 Units/L (12-78) 07/30/22 05:30 Alkaline Phosphatase 93 Units/L (46-116) 07/30/22 05:30 Total Protein 6.8 g/dL (6.4-8.2) 07/30/22 05:30 Albumin 3.2 g/dL (3.4-5.0) L 07/30/22 05:30 Globulin 3.6 g/dL (2.5-4.5) 07/30/22 05:30 Albumin/Globulin Ratio 0.9 Ratio (1.1-2.1) L 07/30/22 05:30 Amylase 96 Units/L (25-115) 07/30/22 05:30 Lipase 268 Units/L (73-393) 07/30/22 05:30 Specimen Type Clean catch urine 07/28/22 22:30 Urine Color Yellow (YELLOW) 07/28/22 22:30 Urine Appearance Clear (CLEAR) 07/28/22 22:30 Urine pH 6.5 (5.0 - 8.0) 07/28/22 22:30 Ur Specific [place] 1.015 (1.000-1.030) 07/28/22 22:30 Urine Protein Negative (NEGATIVE) 07/28/22 22:30 Urine Glucose (UA) Negative (NEGATIVE) 07/28/22 22: Urine Ketones Negative (NEGATIVE) 07/28/22 22: Urine Blood 3+ (NEGATIVE) 07/28/22 22:30 Urine Nitrite Negative (NEGATIVE) 07/28/22 22: Urine Bilirubin Negative (NEGATIVE) 07/28/22 22: Urine Urobilinogen Normal (NORMAL) 07/28/22 22:30 Ur Leukocyte Esterase 2+ (NEGATIVE) 07/28/22 22:30 Urine RBC 3-5 /HPF (0-3) A 07/28/22 22:30 Urine WBC 0-2 /HPF (0-5) 07/28/22 22:30 Ur Squamous Epith Cells Few /HPF (NEGATIVE) 07/28/22 22:30 Urine Bacteria Trace /HPF (NEGATIVE) 07/28/22 22:30 Hyaline Casts Rare /LPF (NEGATIVE) 07/28/22 22:30 Coarse Granular Casts Rare /HPF (NEGATIVE) 07/28/22 22:30 Urine Mucus Rare /HPF (NEGATIVE) 07/28/22 22:30 Ur Culture Indicated? No/not indicated 07/28/22 22:30 Plan (1) Acute pancreatitis: Status: Acute Plan: IVF, IV morphine prn, IV zofran prn continue to advance diet
[2022-07-30] MEDS ORDERED: ROXICODONE TAB 5 MG PO PRN (10:55)
[2022-07-30] MEDS: NEURONTIN TAB 600 MG PO SCH (21:38)
[2022-07-30] MEDS: COLACE CAP 100 MG PO SCH (21:38)
[2022-07-30] MEDS: SNACK - Diabetic Appropriate PO SCH (21:42)
[2022-07-31] MEDS: D5 1/2 NS 1,000 ML 1,000 ML IV SCH ×2 (02:39→10:23)
[2022-07-31] MEDS: NovoLIN R (or HumuLIN R) SUBCUT PRN (06:06)
[2022-07-31 06:25] LABS: BASOPHILS # (AUTO) 0.1 X10^3/uL (0.0-0.1); BASOPHILS % (AUTO) 1.2 % (0.2-1.0); EOSINOPHILS # (AUTO) 0.6 x10^3/uL (0.0-0.2); EOSINOPHILS % (AUTO) 10.1 % (0.9-2.9); HEMATOCRIT 46.6 % (36.0-47.0); HEMOGLOBIN 15.3 g/dL (12.0-16.0); LYMPHOCYTES # (AUTO) 2.5 X10^3/uL (1.3-2.9); LYMPHOCYTES % (AUTO) 43.8 % (21.0-51.0); MEAN CORPUSCULAR HEMOGLOBIN 26.9 pg (27.0-34.0); MEAN CORPUSCULAR HGB CONC 32.8 g/dL (33.0-35.0); MEAN CORPUSCULAR VOLUME 82.1 fL (80.0-100.0); MONOCYTES # (AUTO) 0.5 x10^3/uL (0.3-0.8); MONOCYTES % (AUTO) 8.2 % (0.0-13.0); NEUTROPHILS # (AUTO) 2.1 x10^3/uL (2.2-4.8); NEUTROPHILS % (AUTO) 36.7 % (42.0-75.0); RED BLOOD COUNT 5.67 X10^6/uL (3.5-5.4); RED CELL DISTRIBUTION WIDTH 14.8 % (11.6-16.5); WHITE BLOOD COUNT 5.6 X10^3/uL (3.6-10.0)
[2022-07-31 06:49] LABS: ALANINE AMINOTRANSFERASE 21 Units/L (12-78); ALBUMIN 3.5 g/dL (3.4-5.0); ALKALINE PHOSPHATASE 107 Units/L (46-116); AMYLASE 97 Units/L (25-115); ASPARTATE AMINO TRANSFERASE 14 Units/L (15-37); BLOOD UREA NITROGEN 10 mg/dL (7-18); CALCIUM 8.7 mg/dL (8.5-10.1); CARBON DIOXIDE 29.8 mmol/L (21-32); CHLORIDE 101 mmol/L (98-107); COR NA(FOR HYPERGLY) 141 mmol/L (136-145); CREATININE 0.74 mg/dL (0.55-1.02); LIPASE 278 Units/L (73-393); SODIUM 137 mmol/L (136-145); TOTAL PROTEIN 7.4 g/dL (6.4-8.2); eGFR NON BLACK RACES > 60 (>60)
[2022-07-31] MEDS ORDERED: ZESTRIL TAB 20 MG ONE (07:54)
[2022-07-31] MEDS: ZESTRIL TAB 20 MG PO SCH (08:05)
[2022-07-31] MEDS: NORVASC TAB 10 MG PO SCH (08:05)
[2022-07-31 08:14] VITALS: BP 118/58
[2022-07-31] MEDS: PATIENT'S HOME MEDICATION PO SCH (08:14)
--- NOTE | 2022-07-31 10:34 | W.DIS.FURT ---
Summary of Discharge Discharge Summary of Date Date of Exam: 07/31/22 Admission Date Date of Admission: 07/28/22 Admission Diagnosis Patient Problems (Updated 07/29/22 @ 01:16 by Simone Inman) Acute pancreatitis (Acute) K85.90 Hospital Course: Pt is a 56 year old female admitted for acute pancreatitis that was noted with elevated lipase and on CT imaging. Her hospital/treatment course included: receiving IVF D5 1/2 NS@125ml/h, IV morphine prn for pain control, IV zofran prn for nausea. Pt was initally kept NPO and then diet gradually advanced as tolerated. On day of discharge pt was able to tolerated po intake with minimal pain. Labs/imaging: Wbc 5.6, Hgb 15.3, Plt 269, Na 137, K 3.8, Creatinine 0.74, Glucose 251, Lipase 278. Pt responded well to treatments. Pt discharged in stable condition. Rx oxycodone prn. Will hold synjardy until patient follows up outpatient to discuss. Instructed to follow up with pcp in 1 week. Vital Signs: Vital Signs (72 hours) 07/28/22 21:05 07/28/22 23:15 07/28/22 23:45 Temperature 98.2 F Pulse Rate 78 Pulse Rate [Right] Respiratory Rate 18 18 18 Blood Pressure 190/90 Blood Pressure [Left Arm] Blood Pressure [Right Arm] O2 Sat by Pulse Oximetry 100 Oxygen Delivery Method Room Air 07/29/22 01:20 07/29/22 01:13 07/29/22 01:30 Temperature Pulse Rate Pulse Rate [Right] 72 74 Respiratory Rate 18 Blood Pressure Blood Pressure [Left Arm] 183/91 176/91 Blood Pressure [Right Arm] O2 Sat by Pulse Oximetry 100 100 Oxygen Delivery Method Room Air Room Air 07/29/22 02:25 07/29/22 01:29 07/29/22 01:50 Temperature 98 F Pulse Rate Pulse Rate [Right] 69 Respiratory Rate 18 18 Blood Pressure Blood Pressure [Left Arm] Blood Pressure [Right Arm] 180/90 O2 Sat by Pulse Oximetry 99 Oxygen Delivery Method Room Air Room Air 07/29/22 04:00 07/29/22 05:56 07/29/22 06:26 Temperature 98 F Pulse Rate Pulse Rate [Right] 67 Respiratory Rate 18 18 18 Blood Pressure Blood Pressure [Left Arm] Blood Pressure [Right Arm] 161/89 O2 Sat by Pulse Oximetry 100 Oxygen Delivery Method Room Air 07/29/22 08:50 07/29/22 11:21 07/29/22 08:00 Temperature 98.2 F Pulse Rate Pulse Rate [Right] 66 Respiratory Rate 18 18 Blood Pressure Blood Pressure [Left Arm] Blood Pressure [Right Arm] 158/80 O2 Sat by Pulse Oximetry 99 Oxygen Delivery Method Room Air Room Air 07/29/22 12:00 07/29/22 11:51 07/29/22 16:49 Temperature 98.2 F 99.0 F Pulse Rate Pulse Rate [Right] 64 66 Respiratory Rate 18 18 18 Blood Pressure Blood Pressure [Left Arm] Blood Pressure [Right Arm] 164/84 141/69 O2 Sat by Pulse Oximetry 100 100 Oxygen Delivery Method Room Air Room Air 07/29/22 19:00 07/29/22 19:48 07/29/22 19:53 Temperature 98.6 F Pulse Rate Pulse Rate [Right] 72 Respiratory Rate 18 18 Blood Pressure Blood Pressure [Left Arm] Blood Pressure [Right Arm] 160/90 O2 Sat by Pulse Oximetry 100 Oxygen Delivery Method Room Air Room Air 07/29/22 20:18 07/30/22 00:00 07/30/22 04:00 Temperature 98.3 F 98.1 F Pulse Rate Pulse Rate [Right] 66 64 Respiratory Rate 18 18 18 Blood Pressure Blood Pressure [Left Arm] Blood Pressure [Right Arm] 159/79 167/81 O2 Sat by Pulse Oximetry 98 100 Oxygen Delivery Method Room Air Room Air 07/30/22 04:36 07/30/22 05:06 07/30/22 08:24 Temperature Pulse Rate Pulse Rate [Right] Respiratory Rate 18 18 Blood Pressure Blood Pressure [Left Arm] Blood Pressure [Right Arm] O2 Sat by Pulse Oximetry Oxygen Delivery Method Room Air 07/30/22 08:00 07/30/22 12:00 07/30/22 16:00 Temperature 98.6 F 98.6 F 98.2 F Pulse Rate Pulse Rate [Right] 65 72 78 Respiratory Rate 18 20 18 Blood Pressure Blood Pressure [Left Arm] Blood Pressure [Right Arm] 136/80 113/61 118/77 O2 Sat by Pulse Oximetry 100 100 100 Oxygen Delivery Method Room Air Room Air Room Air 07/30/22 19:00 07/30/22 20:00 07/31/22 00:00 Temperature 98.6 F 98.7 F Pulse Rate Pulse Rate [Right] 85 65 Respiratory Rate 18 20 Blood Pressure Blood Pressure [Left Arm] Blood Pressure [Right Arm] 141/76 178/93 O2 Sat by Pulse Oximetry 100 99 Oxygen Delivery Method Room Air Room Air Room Air 07/31/22 04:04 07/31/22 04:00 07/31/22 05:04 Temperature 98 F Pulse Rate Pulse Rate [Right] 77 Respiratory Rate 20 20 20 Blood Pressure Blood Pressure [Left Arm] Blood Pressure [Right Arm] 146/81 O2 Sat by Pulse Oximetry 100 Oxygen Delivery Method Room Air 07/31/22 07:00 07/31/22 08:00 Temperature 97.8 F Pulse Rate Pulse Rate [Right] 66 Respiratory Rate 18 Blood Pressure Blood Pressure [Left Arm] Blood Pressure [Right Arm] 118/58 O2 Sat by Pulse Oximetry 89 L Oxygen Delivery Method Room Air Room Air Labs: Laboratory Last Values WBC 5.6 X10^3/uL (3.6-10.0) 07/31/22 05:21 RBC 5.67 X10^6/uL (3.5-5.4) H 07/31/22 05:21 Hgb 15.3 g/dL (12.0-16.0) 07/31/22 05:21 Hct 46.6 % (36.0-47.0) 07/31/22 05:21 MCV 82.1 fL (80.0-100.0) 07/31/22 05:21 MCH 26.9 pg (27.0-34.0) L 07/31/22 05:21 MCHC 32.8 g/dL (33.0-35.0) L 07/31/22 05:21 RDW 14.8 % (11.6-16.5) 07/31/22 05:21 Plt Count 269 X10^3/uL (150.0-450.0) 07/31/22 05:21 MPV 8.0 fL (7.4-11.0) 07/31/22 05:21 Neut % (Auto) 36.7 % (42.0-75.0) L 07/31/22 05:21 Lymph % (Auto) 43.8 % (21.0-51.0) 07/31/22 05:21 [place] % (Auto) 8.2 % (0.0-13.0) 07/31/22 05:21 Eos % (Auto) 10.1 % (0.9-2.9) H 07/31/22 05:21 Baso % (Auto) 1.2 % (0.2-1.0) H 07/31/22 05:21 Neut # (Auto) 2.1 x10^3/uL (2.2-4.8) L 07/31/22 05:21 Lymph # (Auto) 2.5 X10^3/uL (1.3-2.9) 07/31/22 05:21 [place] # (Auto) 0.5 x10^3/uL (0.3-0.8) 07/31/22 05:21 Eos # (Auto) 0.6 x10^3/uL (0.0-0.2) H 07/31/22 05:21 Baso # (Auto) 0.1 X10^3/uL (0.0-0.1) 07/31/22 05:21 Absolute Nucleated RBC 0.0 /100WBC 07/31/22 05:21 Sodium 137 mmol/L (136-145) 07/31/22 05:21 Corrected Sodium 141 mmol/L (136-145) 07/31/22 05:21 Potassium 3.8 mmol/L (3.5-5.1) 07/31/22 05:21 Chloride 101 mmol/L (98-107) 07/31/22 05:21 Carbon Dioxide 29.8 mmol/L (21-32) 07/31/22 05:21 BUN 10 mg/dL (7-18) 07/31/22 05:21 Creatinine 0.74 mg/dL (0.55-1.02) 07/31/22 05:21 Est GFR (MDRD) Af Amer > 60 (>60) 07/31/22 05:21 Est GFR (MDRD) Non-Af > 60 (>60) 07/31/22 05:21 Glucose 251 mg/dL (65-99) H 07/31/22 05:21 POC Glucose (mg/dL) 346 mg/dL (65-99) H 07/31/22 05:55 Calcium 8.7 mg/dL (8.5-10.1) 07/31/22 05:21 Corrected Calcium TNP 07/31/22 05:21 Total Bilirubin 0.40 mg/dL (0.2-1.0) 07/31/22 05:21 AST 14 Units/L (15-37) L 07/31/22 05:21 ALT 21 Units/L (12-78) 07/31/22 05:21 Alkaline Phosphatase 107 Units/L (46-116) 07/31/22 05:21 Total Protein 7.4 g/dL (6.4-8.2) 07/31/22 05:21 Albumin 3.5 g/dL (3.4-5.0) 07/31/22 05:21 Globulin 3.9 g/dL (2.5-4.5) 07/31/22 05:21 Albumin/Globulin Ratio 0.9 Ratio (1.1-2.1) L 07/31/22 05:21 Amylase 97 Units/L (25-115) 07/31/22 05:21 Lipase 278 Units/L (73-393) 07/31/22 05:21 Specimen Type Clean catch urine 07/28/22 22:30 Urine Color Yellow (YELLOW) 07/28/22 22:30 Urine Appearance Clear (CLEAR) 07/28/22 22:30 Urine pH 6.5 (5.0 - 8.0) 07/28/22 22:30 Ur Specific [place] 1.015 (1.000-1.030) 07/28/22 22:30 Urine Protein Negative (NEGATIVE) 07/28/22 22:30 Urine Glucose (UA) Negative (NEGATIVE) 07/28/22 22:30 Urine Ketones Negative (NEGATIVE) 07/28/22 22:30 Urine Blood 3+ (NEGATIVE) 07/28/22 22:30 Urine Nitrite Negative (NEGATIVE) 07/28/22 22:30 Urine Bilirubin Negative (NEGATIVE) 07/28/22 22:30 Urine Urobilinogen Normal (NORMAL) 07/28/22 22:30 Ur Leukocyte Esterase 2+ (NEGATIVE) 07/28/22 22:30 Urine RBC 3-5 /HPF (0-3) A 07/28/22 22:30 Urine WBC 0-2 /HPF (0-5) 07/28/22 22:30 Ur Squamous Epith Cells Few /HPF (NEGATIVE) 01/19/23 22:30 Urine Bacteria Trace /HPF (NEGATIVE) 07/28/22 22:30 Hyaline Casts Rare /LPF (NEGATIVE) 07/28/22 22:30 Coarse Granular Casts Rare /HPF (NEGATIVE) 07/28/22 22:30 Urine Mucus Rare /HPF (NEGATIVE) 07/28/22 22:30 Ur Culture Indicated? No/not indicated 07/28/22 22:30 Reason For Visit: ACUTE PANCREATITIS Discharge Date Discharge Date: 07/31/22 Discharge Diagnosis All Active Problems (Updated 07/29/22 @ 01:16 by Simone Inman) Infected finger (Acute) Cellulitis (Acute) Acute pancreatitis (Acute) Tinea pedis (Acute) Dermal hypersensitivity reaction (Acute) Essential hypertension (Chronic) History of angina (Chronic) Gout (Chronic) Hyperosmolar non-ketotic state in patient with type 2 diabetes mellitus (Acute) Hyperglycemia without ketosis (Acute) Metabolic acidosis (Acute) Gastroenteritis (Acute) Hematuria (Acute) Cystitis (Acute) Hypertension (Acute) Acute hyperglycemia (Acute) Cellulitis of both feet (Acute) Plan of Treatment: Continue with present treatment and follow up plan. Pt is to keep follow up appointment as instructed and take medications as ordered. Discharge Medications Discharge Medications: codeine Adverse Reaction (Verified 07/27/21 09:33) CONTINUE taking the following medications atorvastatin 20 mg tablet 1 tab PO QDAY 07/29/22 [History] lisinopril 20 mg tablet 1 tab PO QDAY 07/29/22 [History] metformin 500 mg tablet,extended release 24 hr 1 tab PO BID 07/29/22 [History] mupirocin 2 % topical ointment 1 applic topical BID-TID 07/29/22 [History] tramadol 50 mg tablet 1 tab PO TID PRN 07/29/22 [History] New Prescriptions oxycodone 5 mg tablet 5 mg PO Q4H PRN 10 days #30 tabs 07/31/22 [Rx] Discharge Disposition Discharge Disposition: Home Discharge Condition: Stable Discharge Plan Discharge Plan Hospital Course: Pt is a 56 year old female admitted for acute pancreatitis that was noted with elevated lipase and on CT imaging. Her hospital/treatment course included: receiving IVF D5 1/2 NS@125ml/h, IV morphine prn for pain control, IV zofran prn for nausea. Pt was initally kept NPO and then diet gradually advanced as tolerated. On day of discharge pt was able to tolerated po intake with minimal pain. Labs/imaging: Wbc 5.6, Hgb 15.3, Plt 269, Na 137, K 3.8, Creatinine 0.74, Glucose 251, Lipase 278. Pt responded well to treatments. Pt discharged in stable condition. Rx oxycodone prn. Will hold synjardy until patient follows up outpatient to discuss. Instructed to follow up with pcp in 1 week. Patient Disposition: HOME, SELF-CARE Condition: Stable Health Concerns: Post Hospitalization: new medications and changes needed to prevent readmission or further decline. Pt educated and given instructions on all concerns. Care Plan Goals: Problem: Pain/Alteration in Comfort Goal: Improve/ Resolve Pain; Achieve Pain Tolerance Instructions: Take pain medications as prescribed. Contact your primary care provider if your pain is unrelieved or worsens. Follow up with primary care provider as directed. Plan of Treatment: Continue with present treatment and follow up plan. Pt is to keep follow up appointment as instructed and take medications as ordered. Prescriptions: New oxycodone 5 mg Tablet 5 mg PO Q4H MDD 6 tablets PRN10 Days Qty: 30 0RF Continued atorvastatin 20 mg tablet 1 tab PO QDAY lisinopril 20 mg tablet 1 tab PO QDAY tramadol 50 mg tablet 1 tab PO TID PRN metformin 500 mg tablet extended release 24 hr 1 tab PO BID Discontinued Synjardy XR 25-1,000 mg tablet, IR - ER, biphasic 24hr 1 tab PO DAILY No Action mupirocin 2 % ointment 1 applic TOPICAL BID-TID Orders to Discharge Patient Discharge Orders: Discharge (Routine); Ordered 07/31/22 Ordered By: Tulio Kathleen Follow ups/Referrals Follow ups/Referrals: Tulio Kathleen [Primary Care Provider] - 1 WEEK Instructions Instructions: Acute Pancreatitis, [id number], Pancreatitis Eating Plan, Hypertension, Adult, [id number] Stand Alone Forms: Excuse From Work or School
== END 2022-07-31 11:30 | disposition home or self-care (01) ==
LOC: ER 21:04 → MED/SURG 21:04
PROVIDERS: ADMIT Obstetrics & Gynecology Obstetrics; ATTEND Family Medicine
DX: K85.90 Acute pancreatitis without necrosis or infection, unspecified; I10 Essential (primary) hypertension; E11.65 Type 2 diabetes mellitus with hyperglycemia; R10.13 Epigastric pain